=== PATIENT | female | born 1945 | race Caucasian/White ===

== ENCOUNTER → 2016-03-15 | Outpatient (CLI) | payer OTHER, MEDICARE ==
--- NOTE | 2016-03-15 12:59 | MA ---
Screening Digital Mammogram With iCAD Analysis Clinical Indications: Routine screening. The patient has had multiple benign right breast biopsies. Technique: Standard cephalocaudal and mediolateral oblique projections were obtained. A skin marker i s placed on right breast surgical scar. [facility]. Comparison: June 2014, May 2013, October 2011, June 2010, May 2009, May 2008. Breast Density: A; Fatty. Findings: CAD was reviewed. Benign secretory-type calcifications are seen predominantly in the left b reast. No masses, suspicious calcifications, or other signs of malignancy are identified. There has been no significant change in the appearance of either breast. Impression: Benign mammography, BI-RADS 2. Recommendation: Routine mammographic screening in one year as long as physical examination is negativ eFormerly [facility] to the [facility]. Negative mammography should not preclude additional workup of a clinically suspicious finding. The patient's information is entered into a reminder system with a target due date for her next mammo gram.
== END ==
LOC: CIMAGING 09:53
DX: Z12.31 Encounter for screening mammogram for malignant neoplasm of breast (principal)
CPT/HCPCS: G0202

== ENCOUNTER 2016-05-24 12:03 | Emergency (ER) | payer OTHER, MEDICARE ==
[2016-05-24 12:24] VITALS: TEMP 98.1
[2016-05-24] MEDS ORDERED: BENZONATATE 100 MG CAP PO ONE (12:49)
--- NOTE | 2016-05-24 12:56 | UCPHY ---
H & P Time Seen by Provider: 05/24/16 12:40 Patient Type: Established HPI/ROS: HPI Cough, cold symptoms. 70-year-old female by private vehicle with her . She and her have both had cough, nasal congestion, chest congestion, sore throat ongoing for 10 days to 2 weeks now. No fever. She reports feeling fatigued. ROS: Constitutional: As above. Eyes: No discharge. No changes in vision. ENT: As above Respiratory: As above. No shortness of breath. Cardiac: No chest pain, no palpitations. Gastrointestinal: No abdominal pain, no vomiting, no diarrhea. Genitourinary: No hematuria. No dysuria or increased frequency with urination. Musculoskeletal: No back pain. No neck pain. No myalgias or arthralgias. Skin: No rashes. Neurological: No headache. No focal weakness or altered sensation. Past medical history: Extensive past medical history which has been reviewed. Please see triage note for further details. She is on oxygen at 2 L during the night for sleep apnea. Social history: Here with her . She lives with her . Former smoker. Physical Exam: General Appearance: Alert, no distress. This patient is responding to questions appropriately and in full sentences. This patient appears well- hydrated and well-nourished. Eyes: Pupils equal and round no pallor or injection. No lid edema, erythema or injection. ENT, Mouth: Mucous membranes are moist. The pharyngeal tissues are unremarkable. No edema or swelling. No asymmetry suggestive of abscess. No erythema or exudates. Respiratory: There are no retractions, lungs are clear to auscultation with diminished air movement bilaterally. No tachypnea. This is likely her baseline. Cardiovascular: Regular rate and rhythm. No murmur. Neurological: Motor sensory function is grossly intact. Cranial nerves are normal. Neurologic status at baseline. Skin: Warm and dry, no rashes. Musculoskeletal: Neck is supple and nontender. Extremities are symmetrical. All joints range without pain or impingement. Psychiatric: No agitation. No depression. Database: EKG: Imaging: Chest x-ray PA and lateral; the cardiac mediastinal silhouette is unremarkable. No evidence of infiltrate or pneumothorax. No acute cardiopulmonary disease process noted. Interpreted by me. Procedures: Emergency department course: This patient has had ongoing upper respiratory infection/bronchitis symptoms for the last 10 days to 2 weeks. Chest x-ray will be obtained. She will be given 200 mg of Tessalon Perle. Her vital signs have been reviewed. She is afebrile. She is moderately hypertensive. 1:40 p.m., patient re-evaluated. She is resting comfortably. Repeat lung exam is unchanged from prior. No tachypnea. She is having no difficulty breathing. The results of her chest x-ray were discussed with her. I do not feel she requires steroids or scheduled nebulizers at this time. Her presentation is consistent with an upper respiratory infection, viral etiology. Antibiotics are not indicated at this time as well. She does feel comfortable going home with her . I discussed close follow-up with her primary care physician. Return to emergency department precautions reviewed. I will prescribe her Tessalon Perle for the cough. All of their questions were answered. She was discharged in good condition. Differential Diagnosis: The differential diagnosis on this patient includes but is not limited to bronchitis, upper respiratory infection, influenza. Pneumonia, serious bacterial infection unlikely. This represents a partial list of diagnoses considered. These considerations are based on history, physical exam, past history, reassessment and diagnostic testing. Smoking Status: Former smoker Constitutional: Initial Vital Signs Temperature (C) 36.7 C 05/24/16 12:21 Heart Rate 96 05/24/16 12:21 Respiratory Rate 16 05/24/16 12:21 Blood Pressure 175/95 H 05/24/16 12:21 O2 Sat (%) 90 L 05/24/16 12:21 O2 Delivery Mode Room Air Allergies/Adverse Reactions: tetracycline [Tetracycline] Allergy (Severe, Verified 05/24/16 12:21) HIVES, RESP ARREST nickel [Nickel] Allergy (Intermediate, Verified 05/24/16 12:21) Hives adhesive [Adhesive] Allergy (Unknown, Verified 05/24/16 12:21) Unknown Home Medications: Medication Instructions Recorded Citalopram [celeXA 20 MG (RX)] 06/06/12 Divalproex ER [Depakote ER 500 MG 06/06/12 (*)] Donepezil HCl [Aricept 5 MG (*)] 06/06/12 Insulin Glargine [Lantus 100 06/06/12 UNITS/ML (*)] metFORMIN HCL [Glucophage 500 mg 06/06/12 (*)] Fesoterodine Fumarate [TOVIAZ] 11/12/12 Fluticasone Propionate [Flonase 09/09/14 Allergy Relief] LORazepam [Ativan (*)] 09/09/14 Lisinopril [Zestril 2.5 mg (*)] 09/09/14 Tizanidine HCl [Zanaflex] 09/09/14 Verapamil HCl [Verapamil Sr] 09/09/14 Atorvastatin Calcium [Lipitor 40 01/23/15 mg (*)] Levothyroxine [Synthroid 200 mcg 01/23/15 (*)] fentaNYL [Duragesic 12 MCG Patch 01/23/15 (*)] Gabapentin [Neurontin 300 MG (*)] 05/19/15 Frova 12/20/15 Benzonatate [Tessalon Pearles] 100 mg PO TID #12 cap 05/24/16 Medical Decision Making - Data Points Medications Given: Discontinued Medications Benzonatate (Tessalon Pearles) 200 mg PO EDNOW ONE Stop: 05/24/16 12:50 Last Admin: 05/24/16 13:20 Dose: 200 mg Departure - Departure Disposition: Home, Routine, Self-Care Clinical Impression: Upper respiratory infection, Bronchitis Condition: Good Instructions: Acute Bronchitis (ED), Upper Respiratory Infection (ED) Additional Instructions: Read and follow provided instructions. Follow-up with your primary care physician tomorrow for re-evaluation without fail. Take medication as prescribed for cough. Keep well hydrated. Use your oxygen at night as prescribed. Return to the emergency department for worsening cough, fever, wheezing, difficulty breathing or other serious concerns. Referrals: Nayla Dale MD [Primary Care Provider] - As per Instructions Prescriptions: Benzonatate [Tessalon Pearles] 100 mg PO TID #12 cap - PQRS PQRS Measurement: 134: Depression screening and followup, PRIME MD-PHQ2 (12 years and older) Over the last 2 weeks, how often have you been bothered by any of the following problems? 1. Feeling down, depressed, or hopeless? 2. Little interest or pleasure in doing things? Answered no to both questions. 130: Documentation of medications. Reviewed all patient medications, doses, route and frequency. 226: Do you smoke? No. 47: 65 and older: Advanced care planning. Patient designates surrogate decision maker as spouse. 51: 18 years old and older with diagnosis of COPD, spirometry performance. NA 52: 18 years old and older with COPD and symptoms of COPD or FEV1<60% predicted prescribed a B Agonist. NA
[2016-05-24 13:36] VITALS: BP 135/85; PULSE 78; RESP 12; O2SAT 91
== END 2016-05-24 13:55 | disposition home or self-care (01) ==
LOC: CED 12:03
DX: J02.9 Acute pharyngitis, unspecified (principal); J40 Bronchitis, not specified as acute or chronic
CPT/HCPCS: 71020; G0463; 99214-PO

== ENCOUNTER → 2016-06-28 | Outpatient (CLI) | payer OTHER, MEDICARE | LOC: FIMAGING 09:21 | PROVIDERS: ATTEND Internal Medicine | DX: Z13.820 Encounter for screening for osteoporosis (principal); Z82.62 Family history of osteoporosis; E07.9 Disorder of thyroid, unspecified; Z78.0 Asymptomatic menopausal state ==

== ENCOUNTER → 2017-04-06 | Outpatient (CLI) | payer OTHER, MEDICARE ==
[~2017-04-06] MED LIST: IOPAMIDOL (ISOVUE 370) 100 ML BTL IV ONE; LIDOCAINE 1% 300 MG/30 ML SDV ONE
== END ==
LOC: FIMAGING 10:03
PROVIDERS: ATTEND Orthopaedic Surgery
DX: M24.10 Other articular cartilage disorders, unspecified site (principal)
CPT/HCPCS: 73580; 73701; Q9967

== ENCOUNTER → 2017-04-07 | Outpatient (CLI) | payer OTHER, MEDICARE | LOC: CIMAGING 09:02 | PROVIDERS: ATTEND Nurse Practitioner | DX: T85.398A Other mechanical complication of other ocular prosthetic devices, implants and grafts, initial encounter (principal); Z98.2 Presence of cerebrospinal fluid drainage device | CPT/HCPCS: 70450-PO ==

== ENCOUNTER → 2017-04-19 | Outpatient (CLI) | payer OTHER, MEDICARE | LOC: CIMAGING 14:04 | PROVIDERS: ATTEND Nurse Practitioner | DX: G91.2 (Idiopathic) normal pressure hydrocephalus (principal); Z98.2 Presence of cerebrospinal fluid drainage device | CPT/HCPCS: 70250-PO; 70450-PO; 71045-PO; 72040-PO; 74018-PO ==

== ENCOUNTER 2017-05-02 09:11 | Day surgery (SDC) | payer OTHER, MEDICARE ==
--- NOTE | 2017-05-01 22:04 | PDHPUP ---
History & Physical Update H&P update statement: This history and physical update is based on an assessment of the patient which was completed after admission or registration (within 24 hours), but prior to the surgery/procedure. H&P update: H&P reviewed & patient examined, no change in patient's condition since H&P completed
--- NOTE | 2017-05-01 23:11 | GHP ---
[f rep st] HISTORY AND PHYSICAL Amended report CHIEF COMPLAINT: Left leg pain. 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 She has 2 symptomatic surgical screws that are bothering her. She would like those removed. ALLERGIES: Include nickel and tetracycline. MEDICATIONS: Include almotriptan, atorvastatin, Denavir, divalproex, donepezil , sentinel, gabapentin, Lantus insulin, levothyroxine, lisinopril, lorazepam, metformin, methocarbamol, ProAir, Percocet, sumatriptan, tizanidine, and verapamil. PAST MEDICAL HISTORY: Prior medical problems include anemia, asthma, cancer, diabetes, high cholesterol, reflux, migraines, sleep apnea, thyroid issues and metal sensitivity. PAST SURGICAL HISTORY: Prior surgery includes a , tubal ligation, left tibia x2. SOCIAL HISTORY: She is a former smoker, uses no alcohol. PHYSICAL EXAMINATION: EXTREMITIES: The patient has tenderness associated with the metal plate, as well as 2 screws particularly rubbing up against her fibula. X-ray exam reveals some osteolytic changes around the tip of the screws associated with the fibula. She would like surgery in order to resolve the problem. HEENT: The patient's pupils are equal, round, reactive to light. CHEST: Clear to auscultation. HEART: Regular rate and rhythm. ABDOMEN: Soft and nontender. ASSESSMENT AND PLAN: Patient is status post retained left tibial hardware. Plan is to take her to the operating room to undergo hardware removal. /[id number]/MODL Add acc#, 05/02/17, efraín FERRELL
[~2017-05-02 09:11] MED LIST changes: +ACETAMINOPHEN 500 MG TAB PO ONE; +BACITRACIN 50,000 UNITS/10 ML SYR IRR ONE; +BUPIVACAINE 0.5% 10 ML SDV ONE; -IOPAMIDOL (ISOVUE 370) 100 ML BTL IV ONE; -LIDOCAINE 1% 300 MG/30 ML SDV ONE; +POLYMYXIN B SULFATE 500,000 UNIT/10 ML SYR IRR ONE; +PREGABALIN 150 MG CAP PO ONE; +ceFAZolin 2 GM/SWFI 2 GM/20 ML SYR IVP ONE
--- NOTE | 2017-05-02 09:31 | PDANEPAE ---
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 ANE Past Medical History - Cardiovascular History Hx Hypertension: Yes Hx Arrhythmias: No Hx Chest Pain: No Hx Coronary Artery / Peripheral Vascular Disease: No Hx CHF / Valvular Disease: No Hx Palpitations: No Cardiovascular History Comment: HX OF HTN BUT USES VERAPAMIL FOR HTN AND MIGRAINES - Pulmonary History Hx COPD: No Hx Asthma/Reactive Airway Disease: No Hx Recent Upper Respiratory Infection: No Hx Oxygen in Use at Home: Yes O2 in Use at Home (L/minute): 2L night Hx Sleep Apnea: Yes Sleep Apnea Screening Result - Last Documented: Positive Pulmonary History Comment: FARZANEH. asthma - Neurologic History Hx Cerebrovascular Accident: No Hx Seizures: No Hx Dementia: No Neurologic History Comment: MIGRAINES. Shunt -NPH - Endocrine History Hx Diabetes: Yes Hypothyroid: Yes Obesity: moderate Endocrine History Comment: diabetes type 2. hypothyroid - Renal History Hx Renal Disorders: Yes Renal History Comment: urinary incontinence. - Liver History Hx Hepatic Disorders: No - Neurological & Psychiatric Hx Hx Neurological and Psychiatric Disorders: Yes Neurological / Psychiatric History Comment: BI-POLAR - Cancer History Hx Cancer: Yes Cancer History Comment: SKIN CA REMOVED - Congenital Disorder History Hx Congenital Disorders: No - GI History Hx Gastrointestinal Disorders: Yes Gastrointestinal History Comment: gastric ulcer. OCCASSIONAL HEARTBURN. OCCASSIONAL CONSTIPATION - Other Health History Other Health History: "EXTREMLY DRY" SKIN - Chronic Pain History Chronic Pain: Yes (MIGRAINES) - Surgical History Prior Surgeries: Left tibia ORIF 2015. HW REMOVAL 01/2014. LEFT TIB/FIB ORIF . 01/2008 S/P FALL FX SKULL. 09/2007 SHUNT PLACEMENT FOR NPH. EMERGANT C - SECTION. TUBAL LIGATION. BREAST BIOPSIES X2 ANE Review of Systems Review of systems is: negative Review of Systems: - Exercise capacity Exercise capacity: <4 METS METS (RN): 3 METS ANE Patient History - Allergies Allergies/Adverse Reactions: tetracycline [Tetracycline] Allergy (Severe, Verified 05/24/16 12:21) HIVES, RESP ARREST nickel [Nickel] Allergy (Intermediate, Verified 05/24/16 12:21) Hives adhesive [Adhesive] Allergy (Unknown, Verified 05/24/16 12:21) Unknown - Home Medications Home medications: home medication list seen and reviewed Home Medications: RX: Citalopram [celeXA 20 MG (RX)] 06/06/12 [Last Taken 05/01/17] RX: Divalproex ER [Depakote ER 500 MG (*)] 06/06/12 [Last Taken 05/01/17] RX: Donepezil HCl [Aricept 5 MG (*)] 06/06/12 [Last Taken 05/01/17] RX: Insulin Glargine [Lantus 100 UNITS/ML (*)] 46 06/06/12 [Last Taken 05/01/17] RX: metFORMIN HCL [Glucophage 500 mg (*)] 06/06/12 [Last Taken 05/01/17] RX: Fesoterodine Fumarate [TOVIAZ] 11/12/12 [Last Taken 05/01/17] RX: Fluticasone Propionate [Flonase Allergy Relief] 09/09/14 [Last Taken ] RX: Lisinopril [Zestril 2.5 mg (*)] 09/09/14 [Last Taken 05/01/17] RX: Tizanidine HCl [Zanaflex] 09/09/14 [Last Taken 05/02/17 06:30] RX: Verapamil HCl [Verapamil Sr] 09/09/14 [Last Taken 05/01/17] RX: Atorvastatin Calcium [Lipitor 40 mg (*)] 01/23/15 [Last Taken 05/01/17] RX: Levothyroxine [Synthroid 200 mcg (*)] 01/23/15 [Last Taken 05/01/17] RX: fentaNYL [Duragesic 12 MCG Patch (*)] 01/23/15 [Last Taken 05/02/17] RX: Gabapentin [Neurontin 300 MG (*)] 05/19/15 [Last Taken 05/02/17 06:30] Iron 04/26/17 [Last Taken 05/01/17] Lorazepam 04/26/17 [Last Taken 05/01/17] Ondansetron 04/26/17 [Last Taken 04/17/17] Oxycodone-Acetaminophen 5-325 1 PRN 04/26/17 [Last Taken 05/01/17] Sumatriptan PRN 04/26/17 [Last Taken 05/01/17] - NPO status NPO Status: no food or drink >8 hours - Anes Hx Anes Hx: awareness under anesthesia - Smoking Hx Smoking Status: Former smoker Marijuana use: No - Alcohol Use Alcohol Use: None - Family Anes Hx Family Anes Hx: neg - N/A Family Hx Anesthesia Complications: NONE ANE Labs/Vital Signs - Vital Signs Vital Signs: reviewed preoperatively; see RN documention for details Height: 154.94 cm Weight: 88.904 kg ANE Physical Exam - Airway Neck exam: FROM, increased neck circumference, short neck Mallampati Score: Class 4 Mouth exam: normal dental/mouth exam, small mouth opening - Pulmonary Pulmonary: no respiratory distress - Cardiovascular Cardiovascular: regular rate and rhythym - ASA Status ASA Status: III ANE Anesthesia Plan Anesthesia Plan: general endotracheal anesthesia, GA w LMA Total IV Anesthesia: No
[2017-05-02] MEDS ORDERED: LR 1,000 ML IV ONE (09:34)
[2017-05-02] MEDS ORDERED: PREGABALIN 150 MG CAP ONE (09:39)
[2017-05-02] MEDS ORDERED: ceFAZolin 2 GM/SWFI 20 ML SYR IVP ONE (09:40)
[2017-05-02] MEDS ORDERED: ACETAMINOPHEN 500 MG TAB ONE (09:40)
[2017-05-02 09:58] VITALS: PULSE 76
[2017-05-02] MEDS ORDERED: fentaNYL 100 MCG/2 ML INJ ONE ×2 (11:10→12:26)
[2017-05-02] MEDS ORDERED: PROPOFOL 200 MG/20 ML VIAL ONE (11:10)
[2017-05-02] MEDS ORDERED: ROCURONIUM 50 MG/5 ML VIAL ONE (11:10)
[2017-05-02] MEDS ORDERED: LIDOCAINE 2% 5 ML SDV ONE (11:10)
[2017-05-02] MEDS ORDERED: SUGAMMADEX SODIUM 200 MG/2 ML VIAL IVP ONE (11:42)
[2017-05-02] MEDS ORDERED: ONDANSETRON 4 MG/2 ML VIAL ONE (11:42)
[2017-05-02] MEDS ORDERED: DEXAMETHASONE 4 MG/ML VIAL ONE (11:42)
[2017-05-02] MEDS ORDERED: PHENYLEPHRINE HCL 100 MCG/ML SYR IVP PRN (11:46)
[2017-05-02] MEDS ORDERED: PROMETHAZINE HCL 25 MG/ML INJ IVP PRN ×2 (11:46→12:07)
[2017-05-02] MEDS ORDERED: HYDROmorphONE/DILAUDID 1 MG/ML INJ IVP PRN (11:46)
[2017-05-02] MEDS ORDERED: HYDROCODONE/APAP 5/325 TAB PO PRN (11:46)
[2017-05-02] MEDS ORDERED: LR 500 ML IV PRN (11:46)
[2017-05-02] MEDS ORDERED: LABETALOL HCL 5 MG/ML 20 ML MDV IVP PRN (11:46)
[2017-05-02] MEDS ORDERED: NALOXONE HCL 0.4 MG/ML INJ IVP PRN (11:46)
[2017-05-02] MEDS ORDERED: ONDANSETRON 4 MG/2 ML VIAL IVP PRN ×2 (11:46→12:07)
[2017-05-02] MEDS ORDERED: HYDROGEN PEROXIDE 236 ML BOTTLE TP ONE (11:48)
[2017-05-02] MEDS ORDERED: HYDROmorphONE/DILAUDID 2 MG/ML INJ IVP PRN (12:00)
[2017-05-02] MEDS ORDERED: diphenhydrAMINE 25 MG CAP PO PRN (12:07)
[2017-05-02] MEDS ORDERED: KETOROLAC 30 MG/1 ML SDV IVP PRN (12:07)
[2017-05-02] MEDS ORDERED: CYCLOBENZAPRINE 10 MG TAB PO PRN (12:07)
[2017-05-02] MEDS ORDERED: ONDANSETRON DISINTEGRATING 4 MG TAB PO PRN (12:07)
[2017-05-02] MEDS ORDERED: METOCLOPRAMIDE 10 MG/2 ML VIAL IVP PRN (12:07)
[2017-05-02] MEDS ORDERED: oxyCODONE IR 5 MG TAB PO PRN (12:07)
[2017-05-02] MEDS ORDERED: PROMETHAZINE HCL 25 MG SUPPR PR PRN (12:07)
[2017-05-02] MEDS ORDERED: traMADol 50 MG TAB PO PRN (12:07)
[2017-05-02] MEDS ORDERED: DIPHENOXYLATE/ATROPINE LOMOTIL 1 TAB PO PRN (12:07)
--- NOTE | 2017-05-02 12:07 | POSTOPPROG ---
Post Op Note Date of Operation: 05/02/17 Surgeon: Debbie Dhillon [employer] Welding Machine Operator: coltrain Anesthesia: LMA Pre-op Diagnosis: painful HW Procedure: l tibia keny with fluoro Inf/Abcess present in the surg proc area at time of surgery?: No Depth: Deep Incisional (Fascial) EBL: 50-100
[2017-05-02] MEDS: fentaNYL 100 MCG/2 ML INJ IVP PRN ×3 (12:28→12:54)
[2017-05-02] MEDS ORDERED: LR 1,000 ML IV SCH (12:30)
[2017-05-02 12:33] VITALS: TEMP 97.5
[2017-05-02] MEDS ORDERED: HYDROCODONE/APAP 5/325 TAB ONE (13:23)
[2017-05-02 13:43] VITALS: RESP 16
--- NOTE | 2017-05-02 14:44 | GOP ---
[f rep st] OPERATIVE REPORT DATE OF OPERATION: 05/02/2017 SURGEON: Debbie Dhillon MD ENVIRONMENTAL PROGRAMS SPECIALIST: Aba Mensah [facility], whose presence was medically necessary. ANESTHESIA: By LMA. PREOPERATIVE DIAGNOSIS: Left tibia painful hardware. POSTOPERATIVE DIAGNOSIS: Left tibia painful hardware. PROCEDURE PERFORMED: Left tibia removal of hardware, with the use of fluoroscopy. 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 She would therefore like a portion of the h ardware removed in order to relieve pressure on the fibula. DESCRIPTION OF PROCEDURE: Patient brought to the operating room after the left side had been identif ied as correct side by the patient, nurse and physician. Once in the operating room, she was placed under general anesthesia using an LMA. Once asleep, a tourniquet placed around the upper portion of the left thigh, and the left lower extremity was sterilely prepped and draped in the usual fashion wi th a GSI solution. Once prepped and draped, fluoroscopy was used to find the heads of the screws in question; these were marked at the area of her old scar, at which point, 1 cm incisions were made ove r each of these areas and with sharp and blunt dissection, carried down through the skin and subcutan eous layers, identifying the plate below; at which point, a screwdriver was used to remove each of th e 3 screws in question. Once they were out, the holes were curetted with a small House curette, they were thoroughly irrigated with antibiotic solution and were closed in layers using 2-0 Vicryl suture in an inverted stitch for the subcutaneous layers, and a 3-0 Monocryl suture in a running subcuticul ar stitch for the skin. 15 cc of Marcaine was infused around the combination of the 3 wounds. The w ounds were then dressed with Steri-Strips, Xeroform, 4 x 4's, wrapped in cast padding. The tournique t was deflated at 15 minutes. Leg was completely undraped in the operating room, tourniquet removed from the thigh, and an Noman wrap placed around the leg and ankle. She was then woken up, extubated, transferred onto a stretcher, and sent to recovery room in good con dition. TOURNIQUET TIME: 15 minutes. /[id number]/MODL
--- NOTE | 2017-05-02 15:06 | POSTANESTH ---
Post Anesthetic Evaluation Cardiovascular Status: Normal, Stable, Similar to Pre-Op Cond Respiratory Status: Normal, Stable, Similar to Pre-op Cond. Level of Consciousness/Mental Status: Can Participate in Eval, Alert and Oriented Pain Control: Adequate, Prn Tx Ordered Nausea/Vomiting Control: Adequate, Prn Tx Ordered Complications Possibly Related to Anesthesia: None Noted
[2017-05-02 16:42] VITALS: BP 123/98; O2SAT 90
[2017-05-02] MEDS ORDERED: ACETAMINOPHEN 325 MG TAB PO SCH (18:00)
[2017-05-02] MEDS ORDERED: FAMOTIDINE 20 MG TAB PO SCH (21:00)
== END 2017-05-02 14:45 | disposition home or self-care (01) ==
LOC: FSGY 09:11
PROVIDERS: ATTEND Orthopaedic Surgery
PROC: 0QPH04Z Removal of Internal Fixation Device from Left Tibia, Open Approach (ICD-10-PCS; principal; 2017-05-02 10:45)
DX: T84.84XA Pain due to internal orthopedic prosthetic devices, implants and grafts, initial encounter (principal); J45.909 Unspecified asthma, uncomplicated; E11.9 Type 2 diabetes mellitus without complications; E78.00 Pure hypercholesterolemia, unspecified; K21.9 Gastro-esophageal reflux disease without esophagitis; G47.33 Obstructive sleep apnea (adult) (pediatric); G43.909 Migraine, unspecified, not intractable, without status migrainosus; Z87.891 Personal history of nicotine dependence; Z85.828 Personal history of other malignant neoplasm of skin
CPT/HCPCS: J0690; J1100; J2405; J2704; J3010

== ENCOUNTER → 2017-08-07 | Outpatient (CLI) | payer OTHER, MEDICARE | LOC: CIMAGING 10:23 | PROVIDERS: ATTEND Internal Medicine | DX: Z12.31 Encounter for screening mammogram for malignant neoplasm of breast (principal) ==

== ENCOUNTER → 2018-04-24 | Outpatient (CLI) | payer OTHER, MEDICARE | LOC: FIMAGING 07:27 | PROVIDERS: ATTEND Physician Assistant | DX: M25.512 Pain in left shoulder (principal); M48.02 Spinal stenosis, cervical region ==

== ENCOUNTER 2018-06-10 16:40 | Inpatient (IN) | payer OTHER, MEDICARE ==
[2018-06-10] MEDS ORDERED: KETOROLAC 15 MG/1 ML SDV IVP ONE (17:57)
--- NOTE | 2018-06-10 17:57 | EDPHY ---
H & P Stated Complaint: PRITCHETT-x1wk - mon eye misalinement- went to optho [facility]ah - has neuro apt next Time Seen by Provider: 06/10/18 16:54 HPI/ROS: CHIEF COMPLAINT: Deviation of iris of left eye HISTORY OF PRESENT ILLNESS: This is a 72-year-old female with complex medical history that includes migraines, normal pressure hydrocephalus status post BOTTOM FINISHER shunting in the remote past, hypothyroidism, and diabetes type 2. She comes in this evening concerned because the iris of her left eye is "deviated". She had a similar problem early last week, 5-6 days ago, while watching TV. She noticed that she was seeing multiple images, as if each eye was seeing separately. When she looked in the mirror it was her impression that her left iris was deviated out to the side. This seemed to partially resolve. Two days later she saw Dr. Jimenez Aguilar, ophthalmology, and had a reportedly normal eye examination. It is not clear whether or not she had abnormal EOM at that visit. She was referred to her neurologist Dr. Shaikh, and has an appointment with him in 5 days. However, this morning she awoke with abnormal vision and again noted that her left eye was not moving properly. This has improved slightly during the day but persists. She describes "tunnel vision" and says that maldonado that are perpendicular appear to be angled. She feels dizzy and notes that the room is spinning when she moves her head. When walking she is bumping into the maldonado. She vomited once this morning. In addition, she has a severe headache, not typical of her usual migraines. In retrospect she thinks that she has had a headache for the last couple of weeks. She describes it as feeling as if a "cap is squeezing her head". Her migraines are typically one-sided. She tried her sumatriptan without relief. She has been receiving injections of Abjoy (? a new migraine medication) for four months with excellent migraine control. REVIEW OF SYSTEMS: A ten system review of systems was performed and is negative with the exception of the items mentioned in the HPI. She also mentions that she has been having left shoulder pain and some occasional weakness involving her left upper extremity. She underwent a cervical MRI and was told that she had cervical stenosis and that this was likely the explanation for her pain and intermittent weakness. Past medical history: 1. Migraine headaches 2. Diabetes mellitus type 2 3. Hypothyroidism 4. Normal pressure hydrocephalus 5. Cervical stenosis 6. Bipolar disorder Past surgical history: 1. BOTTOM FINISHER shunt 2. Multiple orthopedic surgeries on the left leg 3. section Family history: Strong family history of diabetes. Her mother of complications related to diabetes. One of her 5 brothers had a throat cancer. Social history: She lives with her . She does not use tobacco or alcohol products. General Appearance: Alert. Vital signs reviewed. Initial blood pressure 176/ 110 with a repeat blood pressure 175/97. Subsequent blood pressure 157/85. Eyes: No conjunctival injection. No discharge. Anicteric. ENT, Mouth: Mucous membranes are moist, no oropharyngeal erythema or edema. Bilateral hearing aids present. Neck: No lymphadenopathy, supple. No carotid bruits. Respiratory: Lungs are clear to auscultation; no wheezes, rales, or rhonchi. Cardiovascular: Regular rate and rhythm; no murmur, rub, or gallop. Gastrointestinal: Abdomen is obese, soft and nontender, no masses or organomegaly, bowel sounds normal. Skin: Warm and dry, no rashes on exposed skin, normal color. Back: Nontender to palpation over the thoracolumbar spine. No CVAT. Extremities: No lower extremity edema, no calf tenderness or swelling. Neurological: Alert and oriented x4. Moving all four extremities easily and equally. Cranial nerves II through XII are examined and are intact with the exception of an inability to adduct her left eye nasally and a subtle pupillary discrepancy with the left pupil slightly smaller than the right. No ptosis noted. No nystagmus. Strength is 5 minus over 5 bilaterally with testing of all major motor groups. Sensation is intact to light touch over all 4 extremities. Gait is steady, using her cane. [id number] is performed slowly with in accuracy--touching her mouth instead of her nose with either hand. Speech is clear and fluent. Psychiatric: Normal affect. - Personal History Tetanus Vaccine Date: within 10 years - Medical/Surgical History Hx Asthma: Yes Hx Chronic Respiratory Disease: Yes Hx Diabetes: Yes Hx Cardiac Disease: No Hx Renal Disease: No Hx Cirrhosis: No Hx Alcoholism: No Hx HIV/AIDS: No Hx Splenectomy or Spleen Trauma: No Other PMH: Chronic migraines, bipolar, anxiety, chronic hyponatremia, diabetes, normal pressure hydrocephalus, reactive airway disease, chronic pain syndrome with narcotic dependency, hypothyroidism,. hypertension, cognitive dysfunction ; BOTTOM FINISHER shunt, tubal ligation, , orthopedic - Social History Smoking Status: Former smoker Constitutional: Initial Vital Signs Temperature (C) 36.6 C 06/10/18 16:51 Heart Rate 96 06/10/18 16:51 Respiratory Rate 18 06/10/18 16:51 Blood Pressure 176/110 H 06/10/18 16:51 O2 Sat (%) 96 06/10/18 16:51 O2 Delivery Mode Room Air Allergies/Adverse Reactions: tetracycline [Tetracycline] Allergy (Severe, Verified 06/10/18 17:32) HIVES, RESP ARREST nickel [Nickel] Allergy (Intermediate, Verified 06/10/18 17:32) Hives adhesive [Adhesive] Allergy (Unknown, Verified 06/10/18 17:32) Unknown Home Medications: Medication Instructions Recorded Citalopram [celeXA 20 MG (RX)] 06/06/12 Divalproex ER [Depakote ER 500 MG 06/06/12 (*)] Donepezil HCl [Aricept 5 MG (*)] 06/06/12 Insulin Glargine [Lantus 100 46 06/06/12 UNITS/ML] metFORMIN HCL [Glucophage 500 mg 06/06/12 (*)] Fluticasone Propionate [Flonase 09/09/14 Allergy Relief] Tizanidine HCl [Zanaflex] 09/09/14 Verapamil HCl [Verapamil Sr] 09/09/14 Levothyroxine [Synthroid 200 mcg 01/23/15 (*)] Gabapentin [Neurontin 300 MG (*)] 05/19/15 Iron 04/26/17 Lorazepam 04/26/17 Ondansetron 04/26/17 Oxycodone-Acetaminophen 5-325 1 PRN 04/26/17 Sumatriptan PRN 04/26/17 Ambien 06/10/18 Migraine Injections Monthly 06/10/18 Myrbetriq 06/10/18 Medical Decision Making - Diagnostics EKG Interpretation: 12 lead EKG is interpreted in [place] by emergency department physician. Sinus rhythm with rate 79. No acute ischemic changes. Imaging Results: Imaging Impressions Head CT 06/10/18 17:31 Impression: 1. Right transoccipital ventriculostomy catheter, with interval decrease in size of the lateral ventricular system. 2. Interval slight increase in bilateral parietal convexity slightly complex subdural hygromas. Results called to Dr. Nicole Newton at 6:00 PM at the time of the interpretation. ED Course/Re-evaluation: 72-year-old female with global headache, unlike her typical migraines, and extra ocular movement abnormality (inability to adduct OS). This has been present for the last 5 days apparently. She has seen an student dean and was referred to her neurologist. However, her symptoms have worsened. Head CT tonight shows a right BOTTOM FINISHER shunt. I discussed it with Dr. Kris Aguilar. Ventricles appear slightly smaller than they did on 04/19/2017. She has bilateral subdural hygromas that her slightly increased from the study done in 2018. He also notes an increase in density of the hygroma fluid the bilateral hygromas are symmetric. No evidence of acute bleeding. I reviewed the films myself. In addition to reviewing her CT scan, I also reviewed her CBC and chemistry results, EKG, and previous records. She received Toradol 50 mg IV in the emergency department for headache. She had significant relief of her headache pain. She was initially noted to be hypertensive with a blood pressure of 176/110. Subsequent blood pressure, approximately 2 hr later, was 157/85. She continues with inability to abduct her left eye. She will need an MRI scan of her head to assess for stroke. 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 This seems to be a fairly isolated deficit raising the question of internuclear ophthalmoplegia; MS seems unlikely at her age, a small stroke in this woman with diabetes seems more likely. MRI is not available at [facility]. She is being admitted to the hospitalist service at [facility]. If she has had a stroke, it is too late for any interventions such as tPA. I have spoken with Dr. Bertrand, on-call for Neurosurgery. His team will see the patient in consultation tomorrow. I have spoken with Dr. Alex Yung, on-call for Neurology. Neurology will see the patient tomorrow. Differential Diagnosis: I considered a differential diagnosis that includes but is not limited TIA, stroke, shunt malfunction, demyelinating disease, subarachnoid hemorrhage, intracranial mass. - Data Points Laboratory Results: 06/10/18 17:27 POC Sodium 140 mEq/L mEq/L (135-145) POC Potassium 4.8 mEq/L mEq/L (3.3-5.0) POC Chloride 101.0 mEq/L mEq/L (97-110) POC Total CO2 27 mEq/L mEq/L (22-31) POC BUN 23 mg/dL mg/dL (7-23) POC Creatinine 0.8 mg/dL mg/dL (0.6-1.0) POC Glucose 121 mg/dL H mg/dL (70-100) POC Calcium 9.8 mg/dL mg/dL (8.5-10.4) Medications Given: Discontinued Medications Ketorolac Tromethamine (Toradol) 15 mg IVP EDNOW ONE Stop: 06/10/18 17:58 Last Admin: 06/10/18 18:00 Dose: 15 mg Point of Care Test Results: CBC CBC Collection Date 06/10/18 CBC Collection Time 17:35 WBC 8.03 RBC 5.75 HGB 18.6 HCT 55.0 PLT 184 Neut # 4.79 Neut 59.6 LYMPH # 2.43 LYMPH 30.3 MCV 95.7 Chemistry 06/10/18 17:27 POC Sodium 140 mEq/L mEq/L (135-145) POC Potassium 4.8 mEq/L mEq/L (3.3-5.0) POC Chloride 101.0 mEq/L mEq/L (97-110) POC Total CO2 27 mEq/L mEq/L (22-31) POC BUN 23 mg/dL mg/dL (7-23) POC Creatinine 0.8 mg/dL mg/dL (0.6-1.0) POC Glucose 121 mg/dL H mg/dL (70-100) POC Calcium 9.8 mg/dL mg/dL (8.5-10.4) Departure - Departure Disposition: [facility] Inpatient Acute Clinical Impression: Extraocular muscle palsy of left eye, Change in vision Headache Qualifiers: Headache type: new daily persistent Qualified Code(s): G44.52 - New daily persistent headache (NDPH) Condition: Fair
[2018-06-10] MEDS ORDERED: ACETAMINOPHEN 325 MG TAB PO PRN (18:32)
[2018-06-10] MEDS ORDERED: ONDANSETRON 4 MG/2 ML VIAL IVP PRN (18:32)
--- NOTE | 2018-06-10 19:12 | PDGENHP ---
History and Physical - Chief Complaint Vision Changes - History of Present Illness Debra Fernández is a 72 yo F with a PMHx of migraines, NPH s/p WOODWIND REEDS CUTTER shunting in the remote past, hypothyroidism, and T2DM who presents to [facility] for vision changes. She reports that this started approx. 6 days ago when she noticed she was seeing multiple images in her visual constantino while watching a hockey game on TV. When she looked in the mirror, she noticed that her L eye was deviated to the outside and would not move to its normal position. She notes a global headache as well as dizziness which are associated with this vision change. Her headache is global and different in quality than her typical migraines. Her migraines are typically unilateral while this is global and squeezing in quality. She attempted to take her sumatriptan without any improvement. She reports that these symptoms seemed to improve and she followed up with an opthamologist, Dr. Jimenez Aguilar, 2 days after onset, who's exam was reportedly normal. She was then referred to her neurologist Dr. Shaikh with whom she has an appointment this upcoming Monday. She reports that this morning when she awoke her vision was abnormal and her L eye wasn't moving properly. She states this has improved slightly over the course of the day but not resolved. She denies any chest pain, SOB, nausea, d/c, f/c, abdominal pain, weakness, numbness/tingling. History Information - Allergies/Home Medication List Allergies/Adverse Reactions: tetracycline [Tetracycline] Allergy (Severe, Verified 06/10/18 17:32) HIVES, RESP ARREST nickel [Nickel] Allergy (Intermediate, Verified 06/10/18 17:32) Hives adhesive [Adhesive] Allergy (Unknown, Verified 06/10/18 17:32) Unknown Home Medications: Citalopram [celeXA 20 MG (RX)] 06/06/12 [Last Taken 05/01/17] Divalproex ER [Depakote ER 500 MG (*)] 06/06/12 [Last Taken 05/01/17] Donepezil HCl [Aricept 5 MG (*)] 06/06/12 [Last Taken 05/01/17] Insulin Glargine [Lantus 100 UNITS/ML] 46 06/06/12 [Last Taken 05/01/17] metFORMIN HCL [Glucophage 500 mg (*)] 06/06/12 [Last Taken 05/01/17] Fluticasone Propionate [Flonase Allergy Relief] 09/09/14 [Last Taken 04/17/17] Tizanidine HCl [Zanaflex] 09/09/14 [Last Taken 05/02/17 06:30] Verapamil HCl [Verapamil Sr] 09/09/14 [Last Taken 05/01/17] Levothyroxine [Synthroid 200 mcg (*)] 01/23/15 [Last Taken 05/01/17] Gabapentin [Neurontin 300 MG (*)] 05/19/15 [Last Taken 05/02/17 06:30] Iron 04/26/17 [Last Taken 05/01/17] Lorazepam 04/26/17 [Last Taken 05/01/17] Ondansetron 04/26/17 [Last Taken 04/17/17] Oxycodone-Acetaminophen 5-325 1 PRN 04/26/17 [Last Taken 05/01/17] Sumatriptan PRN 04/26/17 [Last Taken 05/01/17] Ambien 06/10/18 [Last Taken Unknown] Migraine Injections Monthly 06/10/18 [Last Taken Unknown] Myrbetriq 06/10/18 [Last Taken Unknown] I have personally reviewed and updated: family history, medical history, social history, surgical history - Past Medical History diabetes type 2, hypertension, migraines Additional medical history: NPH sp WOODWIND REEDS CUTTER shunt - Surgical History Reports: neurological surgery - Family History Positive for: non-pertinent - Social History Smoking Status: Former smoker Review of Systems Review of Systems: ROS: 10pt was reviewed & negative except for what was stated in HPI & below Physical Exam Physical Exam: Temp Pulse Resp BP Pulse Ox 36.6 C 78 18 157/85 H 97 06/10/18 19:00 06/10/18 19:00 06/10/18 19:00 06/10/18 19:00 06/10/18 19:00 Constitutional: no apparent distress Eyes: PERRL, EOMI Ears, Nose, Mouth, Throat: moist mucous membranes Cardiovascular: regular rate and rhythym Respiratory: no respiratory distress Gastrointestinal: soft, non-tender abdomen Skin: warm Musculoskeletal: full muscle strength Neurologic: AAOx3, sensation intact bilaterally, CN II-XII Intact Psychiatric: interacting appropriately Lab Data & Imaging Review POC Sodium 140 mEq/L (135-145) 06/10/18 17:27 POC Potassium 4.8 mEq/L (3.3-5.0) 06/10/18 17:27 POC Chloride 101.0 mEq/L (97-110) 06/10/18 17:27 POC Total CO2 27 mEq/L (22-31) 06/10/18 17:27 POC BUN 23 mg/dL (7-23) 06/10/18 17:27 POC Creatinine 0.8 mg/dL (0.6-1.0) 06/10/18 17: POC Glucose 121 mg/dL (70-100) H 06/10/18 17: POC Calcium 9.8 mg/dL (8.5-10.4) 06/10/18 17:27 Assessment & Plan Assessment: Vision Changes - L eye deviated laterally with associated vision changes - CT Head in ED without acute abnormalities, noting interval slight increase in b/l parietal convexity slightly complex subdural hygromas - Neurosurgery consulted by ED, recommend MRI and will see patient in the AM - Patient is out of tPA window if this is related to CVA - Neurology consult placed, patient follows with Dr. Shaikh as outpatient NPH s/p WOODWIND REEDS CUTTER Shunt - CT Head on admission showing R transoccipatl ventroculostomy catheter with interval decrease in size of lateral ventricular system - Neurosurgery consult as above Migraine headaches - Unclear is vision changes related to migraine - Pt attempted sumatriptan without improvement - Patient has been receiving new injectable medications for migraines - Neurology consult as above - PRN pain medication Diabetes mellitus type 2 - Will hold home Metformin - SSI ordered as IP - Restart home insulin at decreased dose pending med rec Hypothyroidism - Continue home levothyroxine FEN: Regular DVT PPx: Lovenox Code: FULL Dispo: Admit to Observation
[2018-06-10] MEDS ORDERED: D50W 25 GM/50 ML SYR IVP PRN (19:29)
--- NOTE | 2018-06-10 19:44 | CPEKG ---
Test Reason : OPEN Blood Pressure : / mmHG Vent. Rate : 079 BPM Atrial Rate : 079 BPM P-R Int : 147 ms QRS Dur : 090 ms QT Int : 381 ms P-R-T Axes : 068 028 082 degrees QTc Int : 437 ms Sinus rhythm Confirmed by Fadi Berry ([id number]) on 06/10/2018 7:43:55 PM Referred By: FADI BERRY Confirmed By:Fadi Berry
[2018-06-10] MEDS: KETOROLAC 15 MG/1 ML SDV IVP SCH (23:48)
[2018-06-11] MEDS ORDERED: GABAPENTIN 300 MG CAP PO ONE (00:08)
[2018-06-11] MEDS ORDERED: LORazepam 0.5 MG TAB PO ONE (04:05)
[2018-06-11 05:10] LABS: PLATELET COUNT 265 10^3/uL (150-400)
[2018-06-11 05:16] LABS: INR 0.94 (0.83-1.16); PROTIME(PATIENT) 12.2 SEC (12.0-15.0)
[2018-06-11] MEDS: KETOROLAC 15 MG/1 ML SDV IVP SCH ×3 (05:54→17:49)
--- NOTE | 2018-06-11 08:47 | GCON ---
[f rep st] CONSULTATION CHIEF COMPLAINT: Vision changes over the course of the last week. HISTORY OF PRESENT ILLNESS: The patient is a 72-year-old female who was admitted to the Internal [facility] with vision changes. She has a past medical history of migraines, normal-pressure hydr ocephalus that she has had a PILOT PLANT TECHNICIAN shunt placed approximately 10 years ago. She also has history of hyp othyroidism, type 2 diabetes. She did present with a 7-day history of vision changes. She reported approximately 6 days ago that she noted seeing multiple images in her visual constantino while watching a hockey game on TV. She looked in the mirror and noted that her left eye was deviated to the outside and was not in its normal position. She called and followed up with her executive wellness programs director, Dr. Aguilar , who felt that her eye exam was okay but felt it was more of an issue with her brain given the devia tion that she has. He made an immediate phone call to Neurology and referred her to Dr. Shaikh. She has an appointment this next Monday with Dr. Shaikh. She complained of some headaches that wa s global and different in quality and than her typical migraines. She attempted to take some of her sumatriptan without any improvement. She reported that some of these symptoms seemed improved after she followed up with her executive wellness programs director 2 days after the onset. She reported worsening symptoms and abnormal vision. This prompted her to go to the emergency department. She was seen in the emergenc y department yesterday and was admitted to the Internal Medicine Service and we were consulted given her history of NPH and this new deviation. She has a pending MRI of the brain with and without contr ast. She has a [employer] PILOT PLANT TECHNICIAN shunt that was set per office notes at 1.0 and this was confirmed with the patient. We will review the images with Dr. Lyon and likely change this and increase the setting to 1.5. Currently, the patient denies any neck pain. No chest pain or shortness of breath. No nausea or vomiting. No abdominal complaints. No fevers or chills. No weakness, numbness, or t ingling. PAST MEDICAL HISTORY: 1. Type 2 diabetes. 2. Hypertension. 3. Migraines. 4. NPH. PAST SURGICAL HISTORY: PILOT PLANT TECHNICIAN shunt placement. ALLERGIES: Tetracyclines, lora and adhesives. HOME MEDICATIONS: Include the following: , Depakote, Aricept, Lantus, Glucophage, Flonase , Zanaflex, verapamil, Synthroid, Neurontin, iron, lorazepam, Zofran, oxycodone, sumatriptan, Ambien, migraine injection medications monthly and Myrbetriq. FAMILY HISTORY: Reviewed and not pertinent. SOCIAL HISTORY: The patient is a former smoker. REVIEW OF SYSTEMS: Complete 10-point review of systems was negative except what is noted in the HPI. PHYSICAL EXAM: GENERAL: This is an awake, alert, oriented female in no acute distress. VITAL SIGNS : Most recent, blood pressure 165/94 with a MAP of 117, 76 heart rate, 16 respirations, 95% on room air, temperature 36.8. HEENT: Head is normocephalic, atraumatic. Pupils are equal, round, reactive to light. EOMI is intact except for medial deviation of the left eye. Full visual constantino by confro ntation. Ears are patent. Nose is patent. NECK: Soft and supple with midline tenderness. Full ra nge of motion in flexion, extension, lateral bending, rotation. RESPIRATORY: Deferred. CARDIAC: D eferred. ABDOMEN: Soft, nontender. No peritoneal signs. : Deferred. RECTAL: Deferred. NEURO : The patient is awake, alert and oriented to name, place, location, date, time, and situation. Mem ory is intact to immediate, past, and current events. Speech: No aphasia, dysarthria, dysphonia. C ranial nerves 2-12 grossly intact except for noted deviation of the left eye. Motor: Patient has 5/ 5 strength in all muscle groups of bilateral upper and lower extremities to include deltoids, biceps, triceps, brachioradialis, wrist flexion extensors, sas sql developer intrinsic fingers, iliopsoas, quadriceps, lanier mstring, plantar flexion, dorsiflexion, EHL testing. Sensation is grossly intact to light touch thro ughout all dermatome distributions upper and lower extremities. Negative straight leg raise. Negati ve FLORENTINO test. Reflexes of the biceps, triceps, brachioradialis, knee jerk and ankle jerk 2+/4. Toe s are downgoing bilaterally. Irby's negative. Babinski negative. No evidence of clonus. MEDICAL DECISION MAKING/DIAGNOSTIC STUDIES: Laboratory tests obtained 06/11/2018, shows a white coun t of 8.98 with an H and H of 12.2 and 36.4, with a platelet count of 265. Coags on 06/11/2018, shows a PT of 12.2, INR of 0.94. Chemistry on 06/11/2018, sodium 133, potassium 5.1, chloride 99, CO2 26, BUN 31, creatinine 0.9, and a glucose of 77. Imaging CT scan of the head obtained 06/10/2018, shows a right trans occipital PILOT PLANT TECHNICIAN catheter noted with interval decrease in size of lateral ventricle system. There is interval size increase in bilateral subdural hygromas. Pending MRI of the brain with and without contrast. IMPRESSION: 1. Vision changes with deviation laterally of the left eye. 2. History of hypothyroidism, type 2 diabetes, migraines, normal-pressure hydrocephalus with ventric uloperitoneal shunt placement with a current setting prior most recent office note of 1.0 confirmed w ith patient. PLAN AND DISCUSSION: The patient is a 72-year-old female, well known to [facility] and [facility], who is a prior patient of Dr. Lyon's, who will be seen and evaluated as well by him this a.m. The patient was admitted with a medial rectus palsy of the left eye. She has outward dev iation of the left eye. The symptoms started approximately a week ago. She was seen by our ophthalm ologist, Dr. Lancaster, felt the ocular exam was okay. He did refer her to Dr. Shaikh for this no andreia eye deviation issue. On her CT scan, there was some noted hygromas. I did review the images wit h Dr. Lyon and he felt that we needed to increase her shunt from 1.0 to 1.5. She has a pending sta t MRI of the brain. Once this is obtained, will instruct the nurse to give me a call and I can come back with the reprogrammer and set her at 1.5. Neurology will consult the patient as well today. Truman shen questions and concerns were answered. The patient understands and agrees. /[id number]
[2018-06-11] MEDS ORDERED: ASPIRIN EC 81 MG TAB PO SCH (09:00)
--- NOTE | 2018-06-11 10:12 | GCON ---
[f rep st] CONSULTATION NEUROLOGY CONSULTATION REFERRING PHYSICIAN: Carolyn Villa MD HISTORY: The patient is a 72-year-old woman who I am asked to see in neurologic consultation regardi ng diplopia. She says that a week ago, she first noticed double vision while she was watching televi alia and objects were split in multiple directions. She looked in the mirror and saw that her left e ye was fixed in the lateral position. She was not sure what was happening, and on Monday of last week, Dr. Jimenez Aguilar for ophthalmology exam and he advised her to have a followup with me. He did not find anything obvious to explain it within her immediate ocular system, but told her he felt it was likely related to the nerve. I have not seen his actual note. 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 T he symptoms have been fluctuating over the last week and there are times when it is more fixed in the lateral position she says and sometimes associated with nausea or vomiting. She says she is not reina e if that is because it makes her so uncomfortable to look at it or if she actually has another sourc e for nausea. She denies facial numbness. She is having a headache over the last several months jaime t is fluctuating and not really position dependent. She has a history of hydrocephalus with shunt an d at higher pressures, she was having ataxia and incontinence issues, so her current shunt setting is at 1, which was working fairly well for many years now, but questions have been raised about whether there could be a pressure component creating this syndrome as well. Otherwise, history of type 2 diabetes, gastric ulcer, the hydrocephalus with shunt, prior concussion. PHYSICAL EXAMINATION: VITAL SIGNS: Blood pressure is 173/85, pulse 74, respiration 17, temperature 36.7. GENERAL: Well developed in no acute distress. NEUROLOGIC: EYES: Clear. She has mild left ptosis. Pupils are 3 mm and reactive with no afferent pupillary defect. She has abduction of the le ft eye in primary gaze and cannot cross toward the central position with the left eye suggesting 3rd nerve involvement, but sparing the pupil. All other extraocular movements seem to be preserved. The rest of her exam is normal. IMAGING: Head CT showed slightly enlarged bilateral subdural hygromas. No hemorrhage or obvious str arnie. IMPRESSION: Total unit time of 50 minutes. The patient has either a left ischemic 3rd nerve palsy o r a falsely localized 3rd nerve problem related to pressure changes, perhaps low intracranial pressur e. We will see if MRI shows anything more specific. A brainstem lesion is less likely, but we will look for any changes with more detailed imaging. I spoke to Dr. Lyon with the patient this morning . Will probably slow the rate of drainage to see if that helps. This might take 6 to 8 weeks to emily w improvement if it is related to relatively low intracranial pressure. She does not give the classi c symptoms, however, of low intracranial pressure in terms of the postural headache. Ischemic 3rd ne rve palsy is certainly possible as well and that likewise may improve spontaneously over 6 to 8 weeks , but does not always recover. Her principal risk factor is diabetes. If everything is stable today , she could potentially be discharged and follow up as an outpatient. /[id number]/MODL
[2018-06-11] MEDS: INSULIN LISPRO 100 UNIT/ML SC SCH ×3 (10:15→18:46)
[2018-06-11] MEDS ORDERED: FREMANEZUMAB VFRM 225 MG SQ SCH (10:30)
[2018-06-11] MEDS ORDERED: ONDANSETRON DISINTEGRATING 4 MG TAB PO PRN (10:58)
[2018-06-11] MEDS: ONDANSETRON DISINTEGRATING 4 MG TAB PO PRN (11:07)
[2018-06-11] MEDS: ENOXAPARIN 40 MG/0.4 ML SYR SC SCH (11:10)
[2018-06-11] MEDS: LORazepam 1 MG TAB PO PRN ×2 (11:11→21:38)
[2018-06-11] MEDS: metFORMIN HCL 500 MG TAB PO SCH ×2 (11:11→20:40)
[2018-06-11] MEDS: ASPIRIN EC 81 MG TAB PO SCH (11:12)
[2018-06-11] MEDS: DIVALPROEX ER 500 MG TAB PO SCH ×2 (11:12→20:39)
[2018-06-11] MEDS ORDERED: GADOBUTROL 10 ML VIAL IVP ONE (11:33)
[2018-06-11] MEDS: LEVOTHYROXINE 200 MCG TAB PO SCH (13:11)
[2018-06-11] MEDS: LEVOTHYROXINE 25 MCG TAB PO SCH (13:11)
--- NOTE | 2018-06-11 13:30 | NEUROPROG ---
Assessment: Addendum to neurologic consultation from this morning: The MRI scan shows a very small left thalamic lacunar infarction that looks acute or subacute in nature but does not explain this visual complaint. There are no areas of acute ischemia. There is diffuse leptomeningeal enhancement which speaks to the fact that she probably does have a relatively low pressure headache syndrome and the plan to slow the rate of drainage with modification of the shunt setting seems appropriate. She should continue hospitalization and we need to continue to finish the workup for stroke risk factors to include carotid ultrasound and echocardiogram with bubble study. I would recommend Plavix 75 mg daily plus aspirin 81 mg daily for 21 days and then likely switch to daily aspirin but will continue to monitor her progress. Objective: Vital Signs Temp Pulse Resp BP Pulse Ox 36.7 C 82 17 169/98 H 95 06/11/18 12:00 06/11/18 12:00 06/11/18 12:00 06/11/18 12:00 06/11/18 12:00 Laboratory Results 06/11/18 04:48 06/11/18 04:48 06/10/18 06/11/18 06/12/18 05:59 05:59 05:59 Intake Total 900 Balance 900 PT 12.2 SEC (12.0-15.0) 06/11/18 04:48 INR 0.94 (0.83-1.16) 06/11/18 04:48 Allergies/Adverse Reactions: tetracycline [Tetracycline] Allergy (Severe, Verified 06/10/18 17:32) HIVES, RESP ARREST nickel [Nickel] Allergy (Intermediate, Verified 06/10/18 17:32) Hives adhesive [Adhesive] Allergy (Unknown, Verified 06/10/18 17:32) Unknown
--- NOTE | 2018-06-11 13:58 | SOAPPROG ---
SOAP Progress Note Assessment/Plan: Shunt reprogrammed to 1.5 from 1.0. Pt tolerated it well. Rechecked 5x and confirmed at 1.5 Objective: Vital Signs Temp Pulse Resp BP Pulse Ox 36.7 C 82 17 169/98 H 95 06/11/18 12:00 06/11/18 12:00 06/11/18 12:00 06/11/18 12:00 06/11/18 12:00 Laboratory Results 06/11/18 04:48 06/11/18 04:48 06/10/18 06/11/18 06/12/18 05:59 05:59 05:59 Intake Total 900 Balance 900 PT 12.2 SEC (12.0-15.0) 06/11/18 04:48 INR 0.94 (0.83-1.16) 06/11/18 04:48 ICD10 Worksheet Patient Problems: Problems Problem Status Onset Change in vision Acute Extraocular muscle palsy of left eye Acute Headache Acute Chest pain Acute Left tibial fracture Acute Pain of left anterior lower extremity Acute UTI (lower urinary tract infection) Acute
--- NOTE | 2018-06-11 14:39 | HOSPPROG ---
Hospitalist Progress Note Assessment/Plan: 72 y female with c/o vision changes. First encounter, chart reviewed. #Vision Changes - L eye deviated laterally with associated vision changes - multifactorial - CT Head in ED without acute abnormalities, noting interval slight increase in b/l parietal convexity slightly complex subdural hygromas - Neurosurgery consulted, recommend MRI - Patient is out of tPA window if this is related to CVA - Neurology consult, patient follows with Dr. Shaikh as outpatient, D/W Dr Shaikh #Lunar infarct -cont care #NPH s/p HARDWARE DESIGNER Shunt - CT Head on admission showing R transoccipatal ventroculostomy catheter with interval decrease in size of lateral ventricular system - Neurosurgery consulted -plan to adjust shunt -D/W neurosurgery #Migraine headaches - pt says not a migraine - Pt attempted sumatriptan without improvement - Patient has been receiving new injectable medications for migraines - Neurology consulted - PRN pain medication #Diabetes mellitus type 2 - restart home meds - SSI ordered as IP - Restart home insulin #Hypothyroidism - Continue home levothyroxine FEN: Regular DVT PPx: Lovenox Code: FULL Dispo: Change to inpt status requires further treatment and evaluation in hospital setting Subjective: Still has severe headache. Vision conts to be a problem. No other issues. Objective: Vital Signs Temp Pulse Resp BP Pulse Ox 36.7 C 82 17 169/98 H 95 06/11/18 12:00 06/11/18 12:00 06/11/18 12:00 06/11/18 12:00 06/11/18 12:00 Laboratory Results 06/11/18 04:48 06/11/18 04:48 06/10/18 06/11/18 06/12/18 05:59 05:59 05:59 Intake Total 900 Balance 900 PT 12.2 SEC (12.0-15.0) 06/11/18 04:48 INR 0.94 (0.83-1.16) 06/11/18 04:48 - Physical Exam Constitutional: chronically ill appearing, obese, uncomfortable Eyes: PERRL, anicteric sclera, other (deviation) Ears, Nose, Mouth, Throat: moist mucous membranes, hearing normal, ears appear normal Cardiovascular: No JVD, No tachycardia, No edema Respiratory: no respiratory distress, no rales or rhonchi, reduced air movement Gastrointestinal: normoactive bowel sounds, No tenderness, No ascites Skin: warm, normal color, No mottled Musculoskeletal: normal joint ROM, no joint effusions, generalized weakness Neurologic: AAOx3 Psychiatric: interacting appropriately, not anxious, not encephalopathic ICD10 Worksheet Patient Problems: Problems Problem Status Onset UTI (lower urinary tract infection) Acute Chest pain Acute Left tibial fracture Acute Pain of left anterior lower extremity Acute Headache Acute Extraocular muscle palsy of left eye Acute Change in vision Acute
--- NOTE | 2018-06-11 15:14 | PDMN ---
Medical Necessity Medical necessity: [facility] Neurology: 72 yo w/ c/o vision changes w/ noted L eye deviation laterally w/ associated vision changes in setting of known remote STOCK ROLLER shunt for NPH. Initially OBS for workup/tx. Neurology & Neurosurg consulted , unsure of etiology. MRI brain completed showing small L thalamic lacunar infarction (acute vs. subacute). Per Neurology pt will need further workup for stroke risk factors including carotid U/S and echo w/ bubble. Per Neurosurgery , STOCK ROLLER shunt reprogrammed to see if that is a factor. Change to IP status 06/11/18@ 1449 per TERMINAL PRESS OPERATOR order as pt requires additional MN for further dx testing and tx. Hx DM2, HTN, migraines, NPH s/p STOCK ROLLER shunt.
--- NOTE | 2018-06-11 16:33 | ASMTCMCOM ---
CM Note CM Note Notes: Pt is a 72 yo F who presents with vision changes. Neurology is consulted. Has history of migranes, diabetes, shunt. At this time PT is rec [facility]. OT eval pending. CM to follow to submit referrals. Plan: [facility]. Date Signed: 06/11/2018 04:32 PM Electronically Signed By:VAIBHAV Orellana
[2018-06-11] MEDS: GABAPENTIN 300 MG CAP PO SCH ×2 (17:50→20:40)
[2018-06-11] MEDS: SUMAtriptan 50 MG TAB PO PRN (17:51)
[2018-06-11] MEDS ORDERED: TEARS/DEXTRAN 70/HYPROMELLOSE 15 ML OPHT.BTL EACHEYE PRN (18:32)
[2018-06-11] MEDS: CITALOPRAM 20 MG TAB PO SCH (18:46)
[2018-06-11] MEDS ORDERED: INSULIN GLARGINE 100 UNITS/ML UNIT SC SCH (21:00)
[2018-06-11] MEDS ORDERED: ZOLPIDEM TARTRATE 5 MG TAB PO SCH (21:00)
[2018-06-11] MEDS ORDERED: VERAPAMIL ER 240 MG TAB PO SCH (21:00)
[2018-06-11] MEDS ORDERED: DONEPEZIL HCL 5 MG TAB PO SCH (21:00)
[2018-06-11] MEDS ORDERED: Mirabegron [Myrbetriq] 50 MG PO SCH (21:00)
[2018-06-11] MEDS ORDERED: SODIUM CL NASAL 45 ML BTL EACHNARE PRN (22:12)
[2018-06-12] MEDS: KETOROLAC 15 MG/1 ML SDV IVP SCH ×2 (00:41→06:15)
[2018-06-12] MEDS: LEVOTHYROXINE 25 MCG TAB PO SCH (06:14)
--- NOTE | 2018-06-12 06:53 | NEUSURGPN ---
Assessment/Plan: Assessment: 72 yo female that is admitted to IM with Neurology and NS consulted with left MR palsy and stroke workup Plan: -MR (medial rectus) palsy on left: pt admitted with HAs/vision changes and MR palsy-neuro stable -MRI of the brain shows acute left thalamic infarct as well as hygromas seen on CT and MRI -shunt reprogrammed yesterday to 1.5 to help with hygromas -PT/OT/ST-CPM -IM and Neurology on board -images and pt seen with Dr Lyon -call with any questions or concerns -pt understands and agrees -will discuss final plan from NS standpoint with Dr Lyon Subjective: Awake and alert. No new events or concerns. No f/c/n/v/d. No neck/chest/abd or gu complaints. Objective: AAO x 3, PERRLA/EOMI no droop CN 2-12 grossly intact except for left MR palsy +lt touch 5/5 BUE/BLE = Neuro Check Frequency: per routine Urinary Catheter in Place: No - Physician Discussed Patient with : Camron Patient Seen by : Camron Neurosurgery Physical Exam - Vitals, I&O, Labs I and O 06/11/18 06/12/18 06/13/18 05:59 05:59 05:59 Intake Total 300 Output Total 150 250 Balance 150 -250 Intake: Oral (ml) 300 Output: Urine (ml) 150 250 Toilet 150 250 Other: Intake Quantity Yes Sufficient Number of Voids Toilet 1 1 Number of Stools Toilet 1 Vital Signs Temp Pulse Resp BP Pulse Ox 37.0 C 70 16 132/69 H 91 L 06/12/18 04:00 06/12/18 04:00 06/12/18 04:00 06/12/18 04:00 06/12/18 04:00 ICD10 Worksheet Patient Problems: Problems Problem Status Onset Change in vision Acute Extraocular muscle palsy of left eye Acute Headache Acute Chest pain Acute Left tibial fracture Acute Pain of left anterior lower extremity Acute UTI (lower urinary tract infection) Acute
[2018-06-12] MEDS: SUMAtriptan 50 MG TAB PO PRN (07:16)
[2018-06-12] MEDS: INSULIN LISPRO 100 UNIT/ML SC SCH ×2 (07:54→11:46)
[2018-06-12] MEDS: GABAPENTIN 300 MG CAP PO SCH (08:58)
[2018-06-12] MEDS: DIVALPROEX ER 500 MG TAB PO SCH (08:58)
[2018-06-12] MEDS: metFORMIN HCL 500 MG TAB PO SCH (08:58)
[2018-06-12] MEDS: ENOXAPARIN 40 MG/0.4 ML SYR SC SCH (08:59)
[2018-06-12] MEDS: CITALOPRAM 20 MG TAB PO SCH (08:59)
[2018-06-12] MEDS: ASPIRIN EC 81 MG TAB PO SCH (08:59)
[2018-06-12] MEDS ORDERED: IRON CARBONYL 15 MG PO SCH (09:00)
[2018-06-12] MEDS ORDERED: Herbals/Supplements -Info Only PO SCH (09:00)
[2018-06-12] MEDS ORDERED: CALCIUM CARB W/VIT D 500 MG TAB PO SCH (09:00)
[2018-06-12] MEDS: LEVOTHYROXINE 200 MCG TAB PO SCH (09:09)
--- NOTE | 2018-06-12 09:32 | NEUROPROG ---
Assessment: 25 minute unit time. NIHSS 1. She will go back on atorvastatin 40mg daily that she had recently temporarily stopped. Continue ASA daily. Follow up with me in one month. OK with discharge. There is small stroke in left thalamus of unknown relevance. Likely small vessel disease. Follow up with Dr. Dale in next month. Objective: Vital Signs Temp Pulse Resp BP Pulse Ox 36.7 C 78 16 165/81 H 94 06/12/18 07:43 06/12/18 07:43 06/12/18 07:43 06/12/18 07:43 06/12/18 07:43 06/11/18 06/12/18 06/13/18 05:59 05:59 05:59 Intake Total 300 Output Total 150 250 Balance 150 -250 PT 12.2 SEC (12.0-15.0) 06/11/18 04:48 INR 0.94 (0.83-1.16) 06/11/18 04:48 Allergies/Adverse Reactions: tetracycline [Tetracycline] Allergy (Severe, Verified 06/10/18 17:32) HIVES, RESP ARREST nickel [Nickel] Allergy (Intermediate, Verified 06/10/18 17:32) Hives adhesive [Adhesive] Allergy (Unknown, Verified 06/10/18 17:32) Unknown
[2018-06-12] MEDS: ONDANSETRON DISINTEGRATING 4 MG TAB PO PRN (10:17)
--- NOTE | 2018-06-12 11:00 | ASMTCMCOM ---
CM Note CM Note Notes: Spoke with patient about PT recommendations for home health care. Patient is not interested in these services at this time. She states she and her will manage . CM let her know they can follow up and if she is doing well they can terminate services after a couple of visits. However, patient was adament she did not need home health at this time. CM explained if she changes her mind, her family can write an order and help her set up services. Patient to discharge home independently today. No further needs. Date Signed: 06/12/2018 10:59 AM Electronically Signed By:Casie Loja LCSW
--- NOTE | 2018-06-12 11:05 | ASMTLACE ---
LACE Length of stay for Answers: 1 day current admission Acuity / Level of Answers: Yes Care: Did the patient have an inpatient admission? Comorbidities - select Answers: Diabetes (uncontrolled or all that apply controlled) Opioid dependence / Chronic pain Other Notes: Hypothyroid, small stro ke # of Emergency department Answers: 1-2 visits in the last 6 months Social determinants Answers: Mental health diagnosis (anxiety, depression, pers onality disorders, etc.) Score: 14 Date Signed: 06/12/2018 11:04 AM Electronically Signed By:Casie Loja LCSW
--- NOTE | 2018-06-12 11:08 | ASDISCHSUM ---
Discharge Information Plan Status:Home with No Needs Medically Cleared to Leave:06/12/2018 Discharge Date:06/12/2018 CM D/C Disposition:Home, Routine, Self-Care ADT D/C Disposition:Home, Routine, Self-Care Projected Discharge Date:06/12/2018 Transportation at D/C:Family Discharge Delay Reason: Follow-Up Date:06/12/2018 Discharge Slot:1 - 8:01 am - 12:00 noon Final Diagnosis:Small stroke in left thalmus Placement Information Patient Contact Information Contact Name:KENJI Relationship: [address] City:[place] Alternate Phone: [facility]/Zip Code:[place] [address] Email: Financial Information Financial Class:Medicare Primary Plan Desc:MEDICARE INPATIENT Primary Plan Number:[id number] Secondary Plan Desc:[employer]/MDR SUPPLEMENT Secondary Plan Number:[id number] Assessment Information LACE LACE Length of stay for Answers: 1 day current admission Acuity / Level of Answers: Yes Care: Did the patient have an inpatient admission? Comorbidities - select Answers: Diabetes (uncontrolled or all that apply controlled) Opioid dependence / Chronic pain Other Notes: Hypothyroid, small stro ke # of Emergency department Answers: 1-2 visits in the last 6 months Social determinants Answers: Mental health diagnosis (anxiety, depression, pers onality disorders, etc.) Score: 14 Date Signed: 06/12/2018 11:04 AM Electronically Signed By:Casie Loja LCSW [facility] Progress Note CM Zeferino EASTON Note Notes: Pt is a 72 yo F who presents with vision changes. Neurology is consulted. Has history of migranes, diabetes, shunt. At this time PT is rec [facility]. OT eval pending. CM to follow to submit referrals. Plan: [facility]. Date Signed: 06/11/2018 04:32 PM Electronically Signed By:VAIBHAV Orellana [facility] Progress Note CM Note CM Note Notes: Spoke with patient about PT recommendations for home health care. Patient is not interested in these services at this time. She states she and her will manage . CM let her know they can follow up and if she is doing well they can terminate services after a couple of visits. However, patient was adament she did not need home health at this time. CM explained if she changes her mind, her family can write an order and help her set up services. Patient to discharge home independently today. No further needs. Date Signed: 06/12/2018 10:59 AM Electronically Signed By:Casie Loja LCSW Case Management Discharge Plan Note Case Management Discharge Discharge Order Complete? Answers: Yes Patient to Obtain Answers: Independently Medications Transportation Arranged Answers: Family/Friends Discharge Comments Notes: Patient is discharging home today independently. Home health care was recommended by PT , however, patient refused services. Patient was informed if she changes her mind she can contact her family doctor and get an order for home health. Patient feels she and her can manage. No further needs. Date Signed: 06/12/2018 11:07 AM Electronically Signed By:ALBA BravoW Intervention Information Intervention Type:*Incorrect Registration Date of Service:06/11/2018 09:32 AM Patient Type:Inpatient Staff Member:Cira Bonilla Hours: Discipline: Severity: Comment:
[2018-06-12 11:26] VITALS: BP 151/77
--- NOTE | 2018-06-12 15:26 | GDS ---
[f rep st] DISCHARGE SUMMARY DISCHARGE DIAGNOSES: 1. Headache. 2. Small left thalamic lacunar infarction. 3. Diffuse leptomeningeal enhancement. 4. Ventriculoperitoneal shunt. CONSULTATION: Neurology. NEUROSURGERY STUDIES AND PROCEDURES DONE: 1. CT of the head. 2. MRI of the brain. PHYSICAL EXAM: GENERAL: The patient is alert. VITAL SIGNS: Afebrile at 37.2, pulse 78, respirator y rate 16, blood pressure is 151/77. She is saturating 94% on room air. I have seen and evaluated t he patient on the day of discharge. HOSPITAL COURSE: The patient is a 72-year-old female who presents to the emergency room with complai nts of visual changes. She is evaluated and diagnosed with: 1. Left thalamus infarct. The relevance of this is unclear. During this hospitalization, she did r eceive a consultation from Neurology. The patient was started on aspirin therapy as well as Plavix. 2. Headache with vision changes. During this hospital course, the patient did have a consultation f rom Neurosurgery. Her shunt was adjusted, and her symptoms have significantly improved. Her headach e is improved. However, her visual changes have not returned to her baseline. She will follow up [facility] Neurosurgery in the outpatient setting. 3. History of migraine headaches. She will continue her home medications and this is improved with shunt adjustment. 4. Diabetes mellitus type 2. Home medications have been re-initiated. 5. Hypothyroidism. No evaluation needed and home Synthroid has been continued. DISPOSITION: She will be discharged home. Home health care has been offered at the time of disposit ion; however, the patient denies needing this and refuses assistance. She states that she and her vineet moulton can continue managing her care in the outpatient setting. DISCHARGE MEDICATIONS: Please refer to EMR form. FOLLOW UP: The patient will follow up with her primary care physician, Dr. Nayla Dale as well as Dr. Ran Shaikh and Neurosurgery. I have provided the patient a prescription for Lipitor at the time of disposition. I spent greater than 35 minutes in the care, coordination, and management of the patient's dispositio n, including discussion with Dr. Shaikh. /[id number]/MODL
[2018-06-13] MEDS ORDERED: ATORVASTATIN CALCIUM 40 MG TAB PO SCH (09:00)
== END 2018-06-12 13:02 | disposition home or self-care (01) | DRG 65 ==
LOC: CED 16:40 → INTOOBSV 18:32 → CEDHOLD 18:32 → F3N 21:00 → OBSVTOIN 06-11 14:49
PROVIDERS: ADMIT Internal Medicine; ATTEND Internal Medicine
DX: I63.81 Other cerebral infarction due to occlusion or stenosis of small artery (principal); H53.8 Other visual disturbances; G91.2 (Idiopathic) normal pressure hydrocephalus; G43.909 Migraine, unspecified, not intractable, without status migrainosus; E11.9 Type 2 diabetes mellitus without complications; E03.9 Hypothyroidism, unspecified; I10 Essential (primary) hypertension; F31.9 Bipolar disorder, unspecified; G89.29 Other chronic pain; F11.20 Opioid dependence, uncomplicated; Z87.891 Personal history of nicotine dependence; Z98.2 Presence of cerebrospinal fluid drainage device
CPT/HCPCS: 70450-PO; 80048-ER; 85025-QW-ER; 96374-ER; 97162-GP; 97166-GO; 97530-GO; 97535-GO; 99285-ER; A9585; G0378; J1650; J1815; J1885; J2405

== ENCOUNTER → 2018-07-13 | Outpatient (CLI) | payer OTHER, MEDICARE | LOC: CIMAGING 10:22 | PROVIDERS: ATTEND Physician Assistant | DX: I62.01 Nontraumatic acute subdural hemorrhage (principal); I63.81 Other cerebral infarction due to occlusion or stenosis of small artery; Z98.2 Presence of cerebrospinal fluid drainage device | CPT/HCPCS: 70450-PO ==

== ENCOUNTER 2018-07-15 16:44 | Observation (INO) | payer OTHER, MEDICARE ==
--- NOTE | 2018-07-15 16:50 | EDPHY ---
H & P Stated Complaint: double vision r eye x 1 hr with hx cva Time Seen by Provider: 07/15/18 16:50 - Personal History Current Tetanus Diphtheria and Acellular Pertussis (TDAP): Yes Tetanus Vaccine Date: within 10 years - Medical/Surgical History Hx Asthma: Yes Hx Chronic Respiratory Disease: Yes Hx Diabetes: Yes Hx Cardiac Disease: No Hx Renal Disease: No Hx Cirrhosis: No Hx Alcoholism: No Hx HIV/AIDS: No Hx Splenectomy or Spleen Trauma: No Other PMH: Chronic migraines, bipolar, anxiety, chronic hyponatremia, diabetes, normal pressure hydrocephalus, reactive airway disease, chronic pain syndrome with narcotic dependency, hypothyroidism,. hypertension, cognitive dysfunction ; SUPERINTENDENT GREENS shunt, tubal ligation, , orthopedic - Social History Smoking Status: Former smoker Constitutional: Initial Vital Signs Temperature (C) 36.7 C 07/15/18 16:46 Heart Rate 87 07/15/18 16:46 Respiratory Rate 17 07/15/18 16:46 Blood Pressure 125/78 H 07/15/18 16:46 O2 Sat (%) 92 07/15/18 16:46 O2 Delivery Mode Nasal Cannula O2 (L/minute) 2 Allergies/Adverse Reactions: tetracycline [Tetracycline] Allergy (Severe, Verified 07/15/18 16:45) HIVES, RESP ARREST nickel [Nickel] Allergy (Intermediate, Verified 07/15/18 16:45) Hives adhesive [Adhesive] Allergy (Unknown, Verified 07/15/18 16:45) Unknown Home Medications: Medication Instructions Recorded Citalopram [celeXA 20 MG (RX)] 40 mg PO DAILY 06/06/12 Divalproex ER [Depakote ER 500 MG 500 mg PO BID 06/06/12 (*)] Donepezil HCl [Aricept 5 MG (*)] 10 mg PO HS 06/06/12 Insulin Glargine [Lantus 100 20 units SQ HS 06/06/12 UNITS/ML] metFORMIN HCL [Glucophage 500 mg 1,000 mg PO BID 06/06/12 (*)] Verapamil HCl [Verapamil Sr] 240 mg PO HS 09/09/14 Levothyroxine [Synthroid 200 mcg 200 mcg PO DAILY 01/23/15 (*)] Gabapentin [Neurontin 300 MG (*)] 600 mg PO TID 05/19/15 Iron,Carbonyl [Iron Chews] 15 mg PO DAILY 04/26/17 LORazepam [Ativan (*)] 1 mg PO Q8HRS PRN 04/26/17 Ondansetron [Ondansetron Odt] 4 mg PO DAILY PRN 04/26/17 SUMAtriptan [Imitrex 50 MG (*)] 100 mg PO Q2H PRN 04/26/17 Aspirin EC [Aspirin EC 81 mg (*)] 81 mg PO DAILY 06/10/18 Calcium Carbonate/Vitamin D3 1 each PO DAILY 06/10/18 [Calcium 1,000 + D3 Caplet] Fremanezumab-Vfrm [Ajovy] 225 mg SQ Q30D 06/10/18 Herbals/Supplements -Info Only 1 ea PO DAILY 06/10/18 Levothyroxine [Synthroid 25 mcg 12.5 mcg PO DAILY06 06/10/18 (*)] Mirabegron [Myrbetriq] 50 mg PO HS 06/10/18 Zolpidem Tartrate [Ambien 5MG (*)] 5 mg PO HS 06/10/18 Acetaminophen [Tylenol 325mg (*)] 650 mg PO Q4HRS PRN tab 06/12/18 Atorvastatin Calcium [Lipitor 40 40 mg PO DAILY #30 tab 06/12/18 mg (*)] Sodium Cl Nasal [[place] (*)] 1 spray [place] PRN PRN btl 06/12/18 Medical Decision Making - Diagnostics Imaging Results: Imaging Impressions Head CT 07/15/18 16:54 Impression: 1. Stable position of the right ventriculostomy catheter. 2. Stable mild bilateral chronic subdural hematoma/hygroma. 3. Tiny visualized left thalamic infarct previously is not as well seen today. No evidence for acute intracranial abnormality. Results called and discussed with Boris Molina MD on July 15, 2018 at 1724 hours. Imaging: Discussed imaging studies w/ scallop cutter Radiologist, I viewed and interpreted images myself ED Course/Re-evaluation: CHIEF COMPLAINT: Double vision HISTORY OF PRESENT ILLNESS: The patient is a 72 y/o female with an extensive medical history including prior strokes and a SUPERINTENDENT GREENS shunt complaining of resolved double vision today. With her prior stroke, she developed vision problems primarily in her left eye. Today she developed the double vision in both eyes, but this has resolved. As this was similar symptoms to her prior stoke, she decided to present to the emergency department. She does not take anticoagulants, but does take a baby aspirin daily. No fever, headache, body aches, lightheadedness, chest pain, heart palpitations, shortness of breath, cough, abdominal pain, urinary or bowel complaints, numbness, paresthesias. REVIEW OF SYSTEMS: A comprehensive 10 system review of systems is otherwise negative aside from elements mentioned in the history of present illness and medical decision making. PHYSICAL EXAM: HR, BP, O2 Sat, RR. Temp noted General Appearance: Alert, well hydrated, appropriate, and non-toxic appearing. Head: Atraumatic without scalp tenderness or obvious injury Eyes: Pupils equal, round, reactive to light and accommodation, EOMI, no trauma , no injection. Ears: Clear bilaterally, no perforation, normal landmarks Nose: Atraumatic, no rhinorrhea, clear. Throat: There is no erythema or exudates, no lesions, normal tonsils, mucus membranes moist. Neck: Supple, 2+ carotid upstroke, nontender, no lymphadenopathy. Respiratory: No retractions, no distress, no wheezes, and no accessory muscle use. Lungs are clear to auscultation bilaterally. Cardiovascular: Regular rate and rhythm, no murmurs, rubs, or gallops. Bilateral carotid, radial, dorsalis pedis, and posterior tibial pulses intact. Good capillary refill all extremities. Gastrointestinal: Abdomen is soft, nontender, non-distended, no masses, no rebound, no guarding, no peritoneal signs. Musculoskeletal: Normal active ROM of all extremities, atraumatic. Neurological: Alert, appropriate, and interactive. The patient has normal DTRs and non-focal cranial nerves, motor, sensory, and cerebellar exam. Skin: No rashes, good turgor, no nodules on palpation. Past medical history: Chronic migraines, bipolar, anxiety, chronic hyponatremia , diabetes, normal pressure hydrocephalus, reactive airway disease, chronic pain syndrome with narcotic dependency, hypothyroidism, hypertension, cognitive dysfunction, SUPERINTENDENT GREENS shunt, tubal ligation, , orthopedic Family history: Denies Social history: at bedside, retired, lives in [place] DIAGNOSTICS/PROCEDURES/CRITICAL CARE TIME: EKG: The 12 lead EKG was interpreted by myself as sinus rhythm with a rate of 80. See hard copy and/or "tracemaster" electronic copy for interpretation. Head CT: Negative Head CTA: 50% left vertebral stenosis without clot Neck CTA: 80% right carotid stenosis without clot DIFFERENTIAL DIAGNOSIS: The differential diagnosis for the patient's neurologic deficits included but was not limited to peripheral causes, central causes including CVA, TIA, electrolyte abnormalities and dehydration, cardiogenic causes, atypical causes like migraine syndrome. MEDICAL DECISION MAKING: The patient is a 72 y/o female with an extensive medical history including prior strokes and a SUPERINTENDENT GREENS shunt presenting with resolved double vision today. With her prior stroke, she developed vision problems primarily in her left eye. She has a normal physical exam besides the subjective description of resolved diplopia. Labs, EKG, head CT, head CTA, and neck CTA ordered. 1652: Stroke alert called by myself due to patient's neurological deficits that are similar to prior strokes. 1722: I consulted with Dr. Bowman, radiologist, regarding this patient. She has a negative head CT compared to her CT 2 days ago. 1724: I interpreted patient's EKG as sinus rhythm with a rate of 80. 1730: I spoke with Dr. Bowman, radiologist, who reports that the patient has an 80% right carotid stenosis without clot, 50% left vertebral stenosis without clot 1736: I consulted with Dr. Jackson, radiologist from [facility], regarding this patient. Patient does not meet TPA criteria due to her recent stroke 2 weeks ago. I will admit this patient for further observation and evaluation. 1740: I consulted with Dr. Villa, hospitalist, regarding this patient. She accepts admission of this patient to rule out CVA vs. TIA. - Data Points Laboratory Results: Laboratory Results 07/15/18 17:00 07/15/18 17:00 07/15/18 07/15/18 07/15/18 17:02 17:00 17:00 WBC RBC Hgb POC Hgb 14.3 gm/dL gm/dL (12.6-16.3) Hct POC Hct 42 % % (38-47) MCV MCH MCHC RDW Plt Count MPV Neut % (Auto) Lymph % (Auto) Titus % (Auto) Eos % (Auto) Baso % (Auto) Nucleat RBC Rel Count Absolute Neuts (auto) Absolute Lymphs (auto) Absolute Monos (auto) Absolute Eos (auto) Absolute Basos (auto) Absolute Nucleated RBC Immature Gran % Immature Gran # POC Sodium 132 mEq/L L mEq/L (135-145) Sodium 131 mEq/L L mEq/L (135-145) POC Potassium 5.3 mEq/L H mEq/L (3.3-5.0) Potassium 5.5 mEq/L H mEq/L (3.5-5.2) POC Chloride 97 mEq/L mEq/L (97-110) Chloride 94 mEq/L L mEq/L (97-110) Carbon Dioxide 22 mEq/l mEq/l (22-31) POC Total CO2 25 mEq/L mEq/L (22-31) Anion Gap 15 mEq/L H mEq/L (6-14) POC BUN 27 mg/dL H mg/dL (7-23) BUN 30 mg/dL H mg/dL (7-23) Creatinine 1.0 mg/dL mg/dL (0.6-1.0) POC Creatinine 1.1 mg/dL H mg/dL (0.6-1.0) Estimated GFR 55 Glucose 63 mg/dL L mg/dL (70-100) POC Glucose 65 mg/dL L mg/dL (70-100) Calcium 10.0 mg/dL mg/dL (8.5-10.4) POC Troponin I 0.00 ng/mL ng/mL (0.00-0.08) 07/15/18 17:00 WBC 10.34 10^3/uL H 10^3/uL (3.80-9.50) RBC 4.16 10^6/uL L 10^6/uL (4.18-5.33) Hgb 13.8 g/dL g/dL (12.6-16.3) POC Hgb Hct 40.3 % % (38.0-47.0) POC Hct MCV 96.9 fL fL (81.5-99.8) MCH 33.2 pg pg (27.9-34.1) MCHC 34.2 g/dL g/dL (32.4-36.7) RDW 12.6 % % (11.5-15.2) Plt Count 295 10^3/uL 10^3/uL (150-400) MPV 9.6 fL fL (8.7-11.7) Neut % (Auto) 51.9 % % (39.3-74.2) Lymph % (Auto) 36.6 % % (15.0-45.0) Titus % (Auto) 10.5 % % (4.5-13.0) Eos % (Auto) 0.3 % L % (0.6-7.6) Baso % (Auto) 0.2 % L % (0.3-1.7) Nucleat RBC Rel Count 0.0 % % (0.0-0.2) Absolute Neuts (auto) 5.37 10^3/uL 10^3/uL (1.70-6.50) Absolute Lymphs (auto) 3.78 10^3/uL H 10^3/uL (1.00-3.00) Absolute Monos (auto) 1.09 10^3/uL H 10^3/uL (0.30-0.80) Absolute Eos (auto) 0.03 10^3/uL 10^3/uL (0.03-0.40) Absolute Basos (auto) 0.02 10^3/uL 10^3/uL (0.02-0.10) Absolute Nucleated RBC 0.00 10^3/uL 10^3/uL (0-0.01) Immature Gran % 0.5 % % (0.0-1.1) Immature Gran # 0.05 10^3/uL 10^3/uL (0.00-0.10) POC Sodium Sodium POC Potassium Potassium POC Chloride Chloride Carbon Dioxide POC Total CO2 Anion Gap POC BUN BUN Creatinine POC Creatinine Estimated GFR Glucose POC Glucose Calcium POC Troponin I Point of Care Test Results: Chemistry 07/15/18 07/15/18 17:02 17:00 POC Sodium 132 mEq/L L mEq/L (135-145) POC Potassium 5.3 mEq/L H mEq/L (3.3-5.0) POC Chloride 97 mEq/L mEq/L (97-110) POC Total CO2 25 mEq/L mEq/L (22-31) POC BUN 27 mg/dL H mg/dL (7-23) POC Creatinine 1.1 mg/dL H mg/dL (0.6-1.0) POC Glucose 65 mg/dL L mg/dL (70-100) POC Troponin I 0.00 ng/mL ng/mL (0.00-0.08) ISTAT H&H 07/15/18 17:02 POC Hgb 14.3 gm/dL gm/dL (12.6-16.3) POC Hct 42 % % (38-47) Departure - Departure Disposition: [facility] Acute Clinical Impression: Diplopia, TIA (transient ischemic attack) CVA (cerebral vascular accident) Qualifiers: CVA mechanism: unspecified Qualified Code(s): I63.9 - Cerebral infarction, unspecified Condition: Fair Report Scribed for: Boris Molina Report Scribed by: Tanya Mei Date of Report: 07/15/18 Time of Report: 16:51
[2018-07-15] MEDS ORDERED: IOPAMIDOL (ISOVUE 370) 100 ML BTL IV ONE (16:56)
[2018-07-15 17:09] LABS: PLATELET COUNT 295 10^3/uL (150-400)
[2018-07-15] MEDS ORDERED: HYDROCODONE/APAP 5/325 TAB PO PRN (19:15)
[2018-07-15] MEDS ORDERED: ACETAMINOPHEN 325 MG TAB PO PRN (19:15)
[2018-07-15] MEDS ORDERED: ONDANSETRON DISINTEGRATING 4 MG TAB PO PRN (19:15)
[2018-07-15] MEDS ORDERED: ONDANSETRON 4 MG/2 ML VIAL IVP PRN (19:15)
[2018-07-15] MEDS ORDERED: oxyCODONE IR 5 MG TAB PO PRN (19:15)
[2018-07-15] MEDS ORDERED: HYDROmorphONE/DILAUDID 1 MG/ML INJ IVP PRN (19:15)
[2018-07-15] MEDS ORDERED: PROMETHAZINE HCL 25 MG/ML INJ IVP PRN (19:15)
[2018-07-15] MEDS ORDERED: SODIUM CL NASAL 45 ML BTL EACHNARE PRN (19:20)
[2018-07-15] MEDS ORDERED: D50W 25 GM/50 ML SYR IVP PRN (19:21)
[2018-07-15] MEDS ORDERED: Mirabegron [Myrbetriq] 50 MG PO SCH (21:00)
[2018-07-15] MEDS ORDERED: LISINOPRIL 2.5 MG TAB PO SCH (21:00)
[2018-07-15] MEDS ORDERED: DONEPEZIL HCL 5 MG TAB PO SCH (21:00)
[2018-07-15] MEDS ORDERED: INSULIN GLARGINE 100 UNITS/ML UNIT SC SCH (21:00)
[2018-07-15] MEDS ORDERED: VERAPAMIL ER 240 MG TAB PO SCH (21:00)
--- NOTE | 2018-07-15 21:46 | PDGENHP ---
History and Physical - Chief Complaint diplopia - History of Present Illness 72 yo F with PMH of NPH s/p TREE WRAPPER shunt and recent diagnosis of acute lacunar infarct of left thalamus that presented with visual changes that were likely not associated with her stroke as well as PRITCHETT and leptomeningeal changes on MRI that were concerning for low pressure state leading to shunt reprograming. She notes that her left eye had been deviated for some time after that discharge but had essentially resolved other than some occasional mild peripheral vision issues. Today she developed again diplopia that this time seemed to be largely involving the right eye. She notes that has resolved other than a very brief recurrence in the ER that resolved prior to my seeing her. She also had a severe PRITCHETT this am and has been having more headaches than usual in the last several days. She notes she is scheduled to f/u with Dr. Lyon tomorrow after her recent shunt adjustment. She states that other than this episode today she has been feeling fine. She has slurred speech which she notes is chronic and agrees is unchanged. History Information - Allergies/Home Medication List Allergies/Adverse Reactions: tetracycline [Tetracycline] Allergy (Severe, Verified 07/15/18 16:45) HIVES, RESP ARREST nickel [Nickel] Allergy (Intermediate, Verified 07/15/18 16:45) Hives adhesive [Adhesive] Allergy (Unknown, Verified 07/15/18 16:45) Unknown Home Medications: Citalopram [celeXA 20 MG (RX)] 40 mg PO DAILY 06/06/12 [Last Taken 07/15/18] Divalproex ER [Depakote ER 500 MG (*)] 500 mg PO BID 06/06/12 [Last Taken 21:00] Donepezil HCl [Aricept 5 MG (*)] 10 mg PO HS 06/06/12 [Last Taken 07/14/18] Insulin Glargine [Lantus 100 UNITS/ML] 18 units SQ HS 06/06/12 [Last Taken 07/14] metFORMIN HCL [Glucophage 500 mg (*)] 1,000 mg PO BIDMEAL 06/06/12 [Last Taken 07/15/18 08:00] Verapamil HCl [Verapamil Sr] 240 mg PO HS 09/09/14 [Last Taken 07/14/18] Levothyroxine [Synthroid 200 mcg (*)] 200 mcg PO DAILY06 01/23/15 [Last Taken ] Gabapentin [Neurontin 300 MG (*)] 600 mg PO TID 05/19/15 [Last Taken 07/15/18 14 :00] LORazepam [Ativan (*)] 1 mg PO DAILY PRN 04/26/17 [Last Taken 07/15/18 13:00] Ondansetron [Ondansetron Odt] 4 mg PO DAILY PRN 04/26/17 [Last Taken 04/17/17] SUMAtriptan [Imitrex 50 MG (*)] 100 mg PO Q2H PRN 04/26/17 [Last Taken 07/15/18 13:00] Aspirin EC [Aspirin EC 81 mg (*)] 81 mg PO DAILY 06/10/18 [Last Taken 07/15/18] Calcium Carbonate/Vitamin D3 [Calcium 1,000 + D3 Caplet] 1 each PO DAILY [Last Taken 07/15/18] Fremanezumab-Vfrm [Ajovy] 225 mg SQ Q30D 06/10/18 [Last Taken 07/11/18] Herbals/Supplements -Info Only 1 ea PO DAILY 06/10/18 [Last Taken 06/10/18] Mirabegron [Myrbetriq] 50 mg PO HS 06/10/18 [Last Taken 07/07/18] Lisinopril [Zestril 2.5 mg (*)] 2.5 mg PO HS 07/15/18 [Last Taken 07/14/18] I have personally reviewed and updated: family history, medical history, social history, surgical history - Past Medical History CVA, diabetes type 2, hypertension, migraines Additional medical history: NPH sp TREE WRAPPER shunt. hypothyroid. gastric ulcer - Surgical History Reports: neurological surgery - Family History Positive for: non-pertinent - Social History Smoking Status: Former smoker Alcohol Use: None Drug Use: None Additional social history: Review of Systems Review of Systems: ROS: 10pt was reviewed & negative except for what was stated in HPI & below Physical Exam Physical Exam: Temp Pulse Resp BP Pulse Ox 36.5 C 85 18 144/76 H 95 07/15/18 19:29 07/15/18 19:29 07/15/18 19:29 07/15/18 19:29 07/15/18 19:29 O2 (L/minute) 2 Constitutional: no apparent distress, appears nourished Eyes: PERRL, anicteric sclera, EOMI Ears, Nose, Mouth, Throat: moist mucous membranes, hearing normal Cardiovascular: regular rate and rhythym, no murmur, rub, or gallop, No edema Respiratory: no respiratory distress, no rales or rhonchi, clear to auscultation Gastrointestinal: normoactive bowel sounds, soft, non-tender abdomen Genitourinary: no bladder tenderness Skin: warm, normal color Musculoskeletal: full muscle strength Neurologic: AAOx3, CN II-XII Intact Psychiatric: interacting appropriately, not anxious Lab Data & Imaging Review 07/15/18 17:00 07/15/18 17:00 WBC 10.34 10^3/uL (3.80-9.50) H 07/15/18 17:00 RBC 4.16 10^6/uL (4.18-5.33) L 07/15/18 17:00 Hgb 13.8 g/dL (12.6-16.3) 07/15/18 17:00 POC Hgb 14.3 gm/dL (12.6-16.3) 07/15/18 17:02 Hct 40.3 % (38.0-47.0) 07/15/18 17:00 POC Hct 42 % (38-47) 07/15/18 17:02 MCV 96.9 fL (81.5-99.8) 07/15/18 17:00 MCH 33.2 pg (27.9-34.1) 07/15/18 17:00 MCHC 34.2 g/dL (32.4-36.7) 07/15/18 17:00 RDW 12.6 % (11.5-15.2) 07/15/18 17:00 Plt Count 295 10^3/uL (150-400) 07/15/18 17:00 MPV 9.6 fL (8.7-11.7) 07/15/18 17:00 Neut % (Auto) 51.9 % (39.3-74.2) 07/15/18 17:00 Lymph % (Auto) 36.6 % (15.0-45.0) 07/15/18 17:00 [place] % (Auto) 10.5 % (4.5-13.0) 07/15/18 17:00 Eos % (Auto) 0.3 % (0.6-7.6) L 07/15/18 17:00 Baso % (Auto) 0.2 % (0.3-1.7) L 07/15/18 17:00 Nucleat RBC Rel Count 0.0 % (0.0-0.2) 07/15/18 17:00 Absolute Neuts (auto) 5.37 10^3/uL (1.70-6.50) 07/15/18 17:00 Absolute Lymphs (auto) 3.78 10^3/uL (1.00-3.00) H 07/15/18 17:00 Absolute Monos (auto) 1.09 10^3/uL (0.30-0.80) H 07/15/18 17:00 Absolute Eos (auto) 0.03 10^3/uL (0.03-0.40) 07/15/18 17:00 Absolute Basos (auto) 0.02 10^3/uL (0.02-0.10) 07/15/18 17:00 Absolute Nucleated RBC 0.00 10^3/uL (0-0.01) 07/15/18 17:00 Immature Gran % 0.5 % (0.0-1.1) 07/15/18 17:00 Immature Gran # 0.05 10^3/uL (0.00-0.10) 07/15/18 17:00 POC Sodium 132 mEq/L (135-145) L 07/15/18 17:02 Sodium 131 mEq/L (135-145) L 07/15/18 17:00 POC Potassium 5.3 mEq/L (3.3-5.0) H 07/15/18 17:02 Potassium 5.5 mEq/L (3.5-5.2) H 07/15/18 17:00 POC Chloride 97 mEq/L (97-110) 07/15/18 17:02 Chloride 94 mEq/L (97-110) L 07/15/18 17:00 Carbon Dioxide 22 mEq/l (22-31) 07/15/18 17:00 POC Total CO2 25 mEq/L (22-31) 07/15/18 17:02 Anion Gap 15 mEq/L (6-14) H 07/15/18 17:00 POC BUN 27 mg/dL (7-23) H 07/15/18 17:02 BUN 30 mg/dL (7-23) H 07/15/18 17:00 Creatinine 1.0 mg/dL (0.6-1.0) 07/15/18 17:00 POC Creatinine 1.1 mg/dL (0.6-1.0) H 07/15/18 17:02 Estimated GFR 55 07/15/18 17:00 Glucose 63 mg/dL (70-100) L 07/15/18 17:00 POC Glucose 86 mg/dL (70-100) 07/15/18 18:27 Calcium 10.0 mg/dL (8.5-10.4) 07/15/18 17:00 POC Troponin I 0.00 ng/mL (0.00-0.08) 07/15/18 17:00 Urine Color PALE YELLOW 07/15/18 18:25 Urine Appearance CLEAR 07/15/18 18:25 Urine pH 7.0 (5.0-7.5) 07/15/18 18:25 Ur Specific [place] 1.028 (1.002-1.030) 07/15/18 18:25 Urine Protein NEGATIVE (NEGATIVE) 07/15/18 18:25 Urine Ketones NEGATIVE (NEGATIVE) 07/15/18 18:25 Urine Blood NEGATIVE (NEGATIVE) 07/15/18 18:25 Urine Nitrate NEGATIVE (NEGATIVE) 07/15/18 18:25 Urine Bilirubin NEGATIVE (NEGATIVE) 07/15/18 18:25 Urine Urobilinogen NEGATIVE EU (0.2-1.0) 07/15/18 18:25 Ur Leukocyte Esterase TRACE (NEGATIVE) H 07/15/18 18:25 Urine RBC NONE SEEN /hpf (0-3) 07/15/18 18:25 Urine WBC 1-3 /hpf (0-3) 07/15/18 18:25 Ur Epithelial Cells NONE SEEN /lpf (NONE-1+) 07/15/18 18:25 Urine Glucose NEGATIVE (NEGATIVE) 07/15/18 18:25 Visualized and Interpreted imaging results: Yes Interpretation: head CT: stable positioning of shunt, stable mild chronic SDH. 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 Has had initial w/u for possible recurrent cva, seen by [facility] neurology who do not recommend tpa. Will monitor neuro sxs, have requested neurology to evaluate as well as Dr. Lyon of neurosurgery and both will see her in am. # recent CVA: at that time presentation was complaint of visual changes but small left thalamic infarct not felt to be causing her visual sxs, continued on asa # headache: patient notes her headaches have been getting worse again, recently felt to be possibly low pressure headaches and shunt was adjusted for that, will monitor for now, nsg in am # carotid stenosis: with right 70% stenosis of carotid bulb and likely warrants surgical evaluation after dc or sooner if felt warranted by neurology # NPH: as above # DM2: holding metformin given contrast dye etc, SSI, recent a1c of 6.7 # observation status Patient new to my care. Old records reviewed and summarized as above. Care plan reviewed with ER doctor and Dr. Lyon as above. Further hx obtained from patients present at bedside.
[2018-07-15] MEDS: DIVALPROEX ER 500 MG TAB PO SCH (21:53)
[2018-07-15] MEDS: GABAPENTIN 300 MG CAP PO SCH (21:53)
[2018-07-16 05:13] LABS: PLATELET COUNT 258 10^3/uL (150-400)
[2018-07-16] MEDS ORDERED: LEVOTHYROXINE 200 MCG TAB PO SCH (06:00)
[2018-07-16] MEDS: INSULIN LISPRO 100 UNIT/ML SC SCH ×2 (08:11→12:27)
--- NOTE | 2018-07-16 08:25 | NEUSURGPN ---
Assessment/Plan: Assessment: 72 yr old female with visual changes, now resolved Plan: Please see dictated consult when complete -Visual changes on admission now resolved per patient -CT head shows stable bilateral chronic SDH -[employer] Strata Valve set to 1.5. Checked with graphics programmer at bedside -Ok to dispo from neurosurgery standpoint -Patient was seen by Dr Lyon as well Please call for questions/concerns Subjective: Denies headache or visual changes Objective: AxOx4 Mildly slurred speech intermittently CN 2-12 grossly intact with mild right facial droop MAEx4 5/5 BUE, BLE Neuro Check Frequency: per routine Urinary Catheter in Place: No - Physician Patient Seen by : [facility] Physical Exam - Vitals, I&O, Labs I and O 07/15/18 07/16/18 07/17/18 05:59 05:59 05:59 Intake Total 300 Output Total 300 Balance 300 -300 Weight 83.007 kg Intake: Oral (ml) 300 Output: Urine (ml) 300 Toilet 300 Other: Number of Voids 1 Toilet 4 1 Vital Signs Temp Pulse Resp BP Pulse Ox 36.6 C 70 17 106/54 L 95 07/16/18 07:39 07/16/18 07:39 07/16/18 07:39 07/16/18 07:39 07/16/18 07:39 Laboratory Results 07/16/18 04:58 07/16/18 04:58 ICD10 Worksheet Patient Problems: Problems Problem Status Onset CVA (cerebral vascular accident) Acute Diplopia Acute TIA (transient ischemic attack) Acute Change in vision Acute Chest pain Acute Extraocular muscle palsy of left eye Acute Headache Acute Left tibial fracture Acute Pain of left anterior lower extremity Acute UTI (lower urinary tract infection) Acute
[2018-07-16] MEDS: GABAPENTIN 300 MG CAP PO SCH (08:42)
[2018-07-16] MEDS: DIVALPROEX ER 500 MG TAB PO SCH (08:42)
[2018-07-16] MEDS ORDERED: CITALOPRAM 20 MG TAB PO SCH (09:00)
[2018-07-16] MEDS ORDERED: CALCIUM CARB W/VIT D 500 MG TAB PO SCH (09:00)
[2018-07-16] MEDS ORDERED: ATORVASTATIN CALCIUM 40 MG TAB PO SCH (09:00)
[2018-07-16] MEDS ORDERED: ASPIRIN EC 81 MG TAB PO SCH (09:00)
--- NOTE | 2018-07-16 10:36 | GCON ---
[f rep st] CONSULTATION CHIEF COMPLAINT: Diplopia. HISTORY OF PRESENT ILLNESS: Patient is a 72-year-old female with a history of ELECTRICAL INSTALLATION SUPERVISOR shunt placement by Dr. Lyon several years ago for NPH. Patient was recently admitted a few weeks ago with a diagnosis of acute lacunar infarct of the left thalamus that presented with visual changes that were likely not associated with her stroke. Patient states that she began having diplopia in her right eye yesterday and was recommended to come to the emergency room for further evaluation. This symptom has ultimately resolved and she states that it would just come and go briefly. Patient denies any other neurological symptoms and denies any headaches other than intermittent headaches that she has had for some time. She was scheduled to see Dr. Lyon in the office today for shunt programming. She has some mild slurred speech, which she states is chronic and is intermittent throughout the exam. REVIEW OF SYSTEMS: A 10-point review of systems was performed and negative aside from what was mentioned in the HPI. ALLERGIES: Tetracycline, nickel, and adhesive. HOME MEDICATIONS: divalproex ER 500 mg p.o. b.i.d., donepezil HCL 10 mg p.o. q.h.s., Insulin 18 units subcu h.s., metformin 1000 mg p.o. b.i.d., verapamil 240 mg p.o. q.h.s., levothyroxine 200 mcg p.o. daily, gabapentin 600 mg p.o. t.i.d., lorazepam 1 mg p.o. daily p.r.n., ondansetron 4 mg p.o. daily, Imitrex 100 mg p.o. q..2 hours p.r.n., aspirin 81 mg p.o. daily, calcium vitamin D supplement 1 capsule daily, mirabegron 50 mg p.o. at bedtime, and lisinopril 2.5 mg p.o. q.h.s. PAST MEDICAL HISTORY: CVA, type 2 diabetes, hypertension, migraine, normal- pressure hydrocephalus, hypothyroid, gastric ulcer. SURGICAL HISTORY: ELECTRICAL INSTALLATION SUPERVISOR shunt placement. FAMILY HISTORY: Reviewed and noncontributory to current situation. SOCIAL HISTORY: Patient is a former smoker. She denies any alcohol use and denies any illicit drug use. Patient is . DIAGNOSTICS/LABORATORY RESULTS: White blood cell count 8.49, hemoglobin 11.9, hematocrit 34.2, platelets are 258. Sodium 131, potassium 4.7, BUN 23, creatinine 0.7, glucose is 83. DIAGNOSTIC/IMAGING: CT of the head performed without contrast on July 15, 2018, demonstrates stable position of the right ventriculostomy catheter, stable mild bilateral chronic subdural hematoma/hygroma and tiny visualized left ophthalmic infarct previously seen is not seen on this exam. No evidence for acute intracranial abnormality. CT-A of the head and neck performed on July 15, 2018, demonstrates mixed calcified and noncalcified atherosclerotic plaque at the right carotid bulb with approximately 70% stenosis, minimal atherosclerotic plaque at the left carotid bulb without stenosis, calcified plaque at the distal left vertebral artery with approximately 50% stenosis. PHYSICAL EXAM: VITAL SIGNS: Blood pressure is 106/54, heart rate 70, respiratory rate 17, oxygen saturations 95% on room air, temperature is 36.6 degrees Celsius. HEENT: Head is normocephalic and atraumatic. Pupils are equal, round, and reactive to. . RESPIRATORY/CARDIAC: Deferred. ABDOMEN: Deferred. GENITALIA/RECTAL: Deferred. NEUROLOGIC: Patient is awake and alert and oriented to name, place, location, date, time, and situation. Her memory is intact to immediate, past, and current events. Speech: Patient has mild aphasia throughout the exam, which she notes to be chronic. Cranial nerves 2 through 12 are grossly intact, aside from a mild right facial droop in 10 protrusion mildly drift to the right. Motor: Patient has 5/5 strength in all muscle groups, bilateral upper and lower extremities to include deltoids, biceps, triceps, brachialis, wrist flexors, extensors, intrinsics, iliopsoas, quadriceps, hamstrings, plantar flexion, dorsiflexion, EHL testing. Reflexes: Brachioradialis and knee jerk are 2+ out of 4. Johanny sign is negative. Clonus is negative. Babinski is negative. ASSESSMENT AND PLAN: Patient is a 72-year-old female with past history of a [employer] ELECTRICAL INSTALLATION SUPERVISOR shunt placement by Dr. Lyon. She was admitted a few weeks ago with stroke-like symptoms and was found to have some chronic subdural hygromas. At that time, her shunt was programmed to 1.5. I confirmed shunt setting this morning at the bedside, which is a 1.5. CT of the brain shows stable mild hygromas. Patient was admitted with some intermittent right eye diplopia, which she states has resolved. Patient was scheduled to see us in the office today, but we have confirmed the shunt settings at the bedside this morning. It is okay for the patient to disposition from a neurosurgery standpoint and she will follow us in the office as needed. Patient was seen and examined by neurosurgical services this morning at 0745 at the bedside. /[id number]/MODL MTDD
[2018-07-16] MEDS ORDERED: SUMAtriptan 50 MG TAB PO PRN (12:04)
--- NOTE | 2018-07-16 12:15 | ASMTCMCOM ---
CM Note CM Note Notes: Patient plan of care discussed with MD. Patient to be evaluated per neurology. No acute needs identified. CM available should needs arise. Plan: DC to home. Date Signed: 07/16/2018 12:14 PM Electronically Signed By:Carol Lucas RN
[2018-07-16] MEDS: LORazepam 1 MG TAB PO PRN ×2 (12:26)
--- NOTE | 2018-07-16 15:24 | PDDCSUM ---
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 Has had initial w/u for possible recurrent cva, seen by [facility] neurology who do not recommend tpa. Dr. Lyon of neurosurgery seen this morning, MANAGER TERMINAL shunt working properly. Outpatient followup recommended with primary neurologist, Dr. Shaikh. # recent CVA: at that time presentation was complaint of visual changes but small left thalamic infarct not felt to be causing her visual sxs, continued on asa # headache: patient notes her headaches have been getting worse again, recently felt to be possibly low pressure headaches and shunt was adjusted for that, neurosurgery evaluation as above # carotid stenosis: with right 70% stenosis of carotid bulb, outpatient f/u with Dr. Soto on 07/19 # NPH: as above # DM2: holding metformin given contrast dye etc, SSI, recent a1c of 6.7
[2018-07-16 15:55] VITALS: BP 136/93
--- NOTE | 2018-07-16 19:27 | GCON ---
[f rep st] CONSULTATION NEUROLOGY CONSULTATION REFERRING PHYSICIAN: Carolyn Villa MD CHIEF COMPLAINT: Diplopia, resolved. HISTORY OF PRESENT ILLNESS: The patient is a very pleasant 72-year-old lady who is well known to the neurosurgery and neurology service as she has a previous diagnosis of normal-pressure hydrocephalus and has a KETTLE OPERATOR HEAD shunt for treatment. She had an episode of diplopia last year and was found to have a left thalamic infarct. She is on statin and aspirin therapy. She came back to the ER yesterday because of transient diplopia that was binocular. She felt objects were moving diagonal to one another with both eyes open. However, the symptoms fluctuated, spontaneously resolved, and then recurred over about a 2- hour period and then completely resolved. She had a stat evaluation in the ED including CTA of the head and neck and head CT. Head CT without contrast shows stable positioning of the KETTLE OPERATOR HEAD shunt and the bilateral hygromas that are chronic. The previous small lacunar infarct in the left thalamus was unchanged from last year. CTA of the head and neck shows 70% stenosis of the right carotid bulb and minimal at the left. Angiogram of the head showed no acute thrombosis. Her symptoms have resolved and she has been seen by Neurosurgery. She was recently seen as an outpatient and had her shunt changed to 1.5. Discussed at length with Dr. Lyon who agrees it may take several months to fully acclimate to pressure check setting changes on the KETTLE OPERATOR HEAD shunt. No other acute motor or sensory symptoms. REVIEW OF SYSTEMS: A ten point review was done, only pertinent to the HPI. For past medical history, social history, family history, home medications, allergies, see Dr. Villa's H and P. PHYSICAL EXAMINATION: VITAL SIGNS: Blood pressure is 106/54, temperature 36.6 , heart rate is 17. GENERAL: In no acute distress. Very pleasant. NEUROLOGIC : On cranial nerve exam, she has full extraocular movements without any abnormalities. No double vision either with the binocular or monocular vision. Face is symmetric. Facial sensation is intact. No focal weakness. Light touch is normal throughout all 4 extremities. Coordination is normal in upper and lower extremities. IMPRESSION: 1. Diplopia, resolved. 2. Previous diagnosis of normal-pressure hydrocephalus, status post KETTLE OPERATOR HEAD shunt. 3. Right carotid artery stenosis ~ 70% PLAN: Her transient intermittent diplopia symptoms may be related to intracranial pressure changes in the setting of bilateral hygromas, recent shunt pressure change and the diagnosis of hydrocephalus. Discussed at length the patient. Certainly, recurrent cerebral infarct or post-stroke recrudescence is on the differential diagnosis as she has had this previously. Her symptoms had a temporal profile more fitting with intracranial pressure fluctuations. Going forward, I recommend she have a close followup with Neurosurgery to monitor her shunt. She is agreeable. In addition, I discussed her at length with Dr. Lyon who agrees it may take several months to fully acclimate to pressure check setting changes on the KETTLE OPERATOR HEAD shunt. The patient states she does not want another MRI brain. In addition, she should stay on her baby aspirin and statin therapy for stroke prophylaxis. She should have an outpatient 30-day event monitor to screen for paroxysmal atrial fibrillation. Finally, she needs to follow up with Dr. Zac Soto for her 70% right carotid artery stenosis. She is agreeable and will discuss treatment options with Dr. Soto. No further recommendations now. We will sign off and follow up as needed. Please do not hesitate to call with any questions or changes in this patient's neurologic status. Seventy total minutes floor time; over 50% in direct counseling and coordination of care. She will return to the emergency department for any acute neurologic symptoms. /[id number]/MODL MTDD
--- NOTE | 2018-07-17 13:11 | CPEKG ---
Test Reason : OPEN Blood Pressure : / mmHG Vent. Rate : 080 BPM Atrial Rate : 080 BPM P-R Int : 159 ms QRS Dur : 087 ms QT Int : 380 ms P-R-T Axes : 067 008 050 degrees QTc Int : 439 ms Sinus rhythm Confirmed by Mulugeta Booker ([id number]) on 07/17/2018 1:10:52 PM Referred By: Carolyn Villa Confirmed By:Mulugeta Booker
== END 2018-07-16 16:19 | disposition home or self-care (01) ==
LOC: F3N 19:14
PROVIDERS: ADMIT Internal Medicine; ATTEND Internal Medicine
DX: H53.2 Diplopia (principal); Z86.73 Personal history of transient ischemic attack (TIA), and cerebral infarction without residual deficits; G91.2 (Idiopathic) normal pressure hydrocephalus; Z98.2 Presence of cerebrospinal fluid drainage device; R51 Headache; I65.21 Occlusion and stenosis of right carotid artery; E11.9 Type 2 diabetes mellitus without complications; Z79.4 Long term (current) use of insulin; F31.9 Bipolar disorder, unspecified; F41.9 Anxiety disorder, unspecified; J45.909 Unspecified asthma, uncomplicated; G89.29 Other chronic pain; F11.20 Opioid dependence, uncomplicated; E03.9 Hypothyroidism, unspecified; I10 Essential (primary) hypertension; Z87.891 Personal history of nicotine dependence
CPT/HCPCS: 70450; 70496; 70498; 92523; 93005; 96372; 97161; 97165; 99285; G0378; 82435-PO; 82565-PO; 82947-PO; 82947-QW; 84132-PO; 84295-PO; 84484-ER; 84520-PO; 85014-ER; J1815; Q9967

== ENCOUNTER 2018-07-31 07:49 | Inpatient (IN) | payer OTHER, MEDICARE ==
[2018-07-31] MEDS ORDERED: ceFAZolin 2 GM/DEXTROSE 100 ML IV ONE (09:05)
[2018-07-31] MEDS ORDERED: BUPIVACAINE 0.5% 30 ML SDV ONE (09:18)
[2018-07-31] MEDS ORDERED: PROTAMINE SULFATE 50 MG/5 ML VIAL IVP ONE (09:19)
[2018-07-31] MEDS ORDERED: THROMBIN (BOVINE) 20,000 UNIT VIAL TP ONE (09:20)
--- NOTE | 2018-07-31 09:24 | PDANEPAE ---
ANE Past Medical History - Cardiovascular History Hx Hypertension: Yes Hx Arrhythmias: No Hx Chest Pain: No Hx Coronary Artery / Peripheral Vascular Disease: No Hx CHF / Valvular Disease: No Hx Palpitations: No Cardiovascular History Comment: HX OF HTN BUT USES VERAPAMIL FOR HTN AND MIGRAINES - Pulmonary History Hx COPD: No Hx Asthma/Reactive Airway Disease: No Hx Recent Upper Respiratory Infection: No Hx Oxygen in Use at Home: Yes O2 in Use at Home (L/minute): 2.L at night Hx Sleep Apnea: Yes Sleep Apnea Screening Result - Last Documented: Positive Pulmonary History Comment: FARZANEH. hx of asthma - Neurologic History Hx Cerebrovascular Accident: No Hx Seizures: No Hx Dementia: No Neurologic History Comment: MIGRAINES. Shunt -NPH - Endocrine History Hx Diabetes: Yes Endocrine History Comment: diabetes type 2. hypothyroid - Renal History Hx Renal Disorders: No Renal History Comment: urinary incontinence. - Liver History Hx Hepatic Disorders: No - Neurological & Psychiatric Hx Hx Neurological and Psychiatric Disorders: Yes Neurological / Psychiatric History Comment: BI-POLAR - Cancer History Hx Cancer: Yes Cancer History Comment: SKIN CA REMOVED - Congenital Disorder History Hx Congenital Disorders: No - GI History Hx Gastrointestinal Disorders: Yes Gastrointestinal History Comment: gastric ulcer. OCCASSIONAL HEARTBURN. OCCASSIONAL CONSTIPATION - Other Health History Other Health History: "EXTREMLY DRY" SKIN. sinusitis. bilatat cataract sx. iron deficency anemia. unperforated ulcer - Chronic Pain History Chronic Pain: Yes (MIGRAINES) - Surgical History Prior Surgeries: Left tibia ORIF 2015. HW REMOVAL 01/2014. LEFT TIB/FIB ORIF . 01/2008 S/P FALL FX SKULL. 09/2007 SHUNT PLACEMENT FOR NPH. EMERGANT C - SECTION. TUBAL LIGATION. BREAST BIOPSIES X2 ANE Review of Systems Review of Systems: - Exercise capacity METS (RN): 2 METS ANE Patient History - Allergies Allergies/Adverse Reactions: tetracycline [Tetracycline] Allergy (Severe, Verified 07/31/18 09:14) HIVES, RESP ARREST nickel [Nickel] Allergy (Intermediate, Verified 07/31/18 09:14) Hives adhesive [Adhesive] Allergy (Unknown, Verified 07/31/18 09:14) Unknown - Home Medications Home Medications: Citalopram [celeXA 20 MG (RX)] 40 mg PO DAILY 06/06/12 [Last Taken 07/15/18] Divalproex ER [Depakote ER 500 MG (*)] 500 mg PO BID 06/06/12 [Last Taken 21:00] Donepezil HCl [Aricept 5 MG (*)] 10 mg PO HS 06/06/12 [Last Taken 07/14/18] Insulin Glargine [Lantus 100 UNITS/ML] 18 units SQ HS 06/06/12 [Last Taken 07/14] metFORMIN HCL [Glucophage 500 mg (*)] 1,000 mg PO BIDMEAL 06/06/12 [Last Taken 07/15/18 08:00] Verapamil HCl [Verapamil Sr] 240 mg PO HS 09/09/14 [Last Taken 07/14/18] Levothyroxine [Synthroid 200 mcg (*)] 200 mcg PO DAILY06 01/23/15 [Last Taken ] Gabapentin [Neurontin 300 MG (*)] 600 mg PO TID 05/19/15 [Last Taken 07/15/18 14 :00] LORazepam [Ativan (*)] 1 mg PO DAILY PRN 04/26/17 [Last Taken 07/15/18 13:00] Ondansetron [Ondansetron Odt] 4 mg PO DAILY PRN 04/26/17 [Last Taken 04/17/17] SUMAtriptan [Imitrex 50 MG (*)] 100 mg PO Q2H PRN 04/26/17 [Last Taken 07/15/18 13:00] Aspirin EC [Aspirin EC 81 mg (*)] 81 mg PO DAILY 06/10/18 [Last Taken 07/15/18] Calcium Carbonate/Vitamin D3 [Calcium 1,000 + D3 Caplet] 1 each PO DAILY [Last Taken 07/15/18] Fremanezumab-Vfrm [Ajovy] 225 mg SQ Q30D 06/10/18 [Last Taken 07/11/18] Herbals/Supplements -Info Only 1 ea PO DAILY 06/10/18 [Last Taken 06/10/18] Mirabegron [Myrbetriq] 50 mg PO HS 06/10/18 [Last Taken 07/07/18] Lisinopril [Zestril 2.5 mg (*)] 2.5 mg PO HS 07/15/18 [Last Taken 07/14/18] Montelukast Sodium [Singulair 10 mg (*)] 10 mg PO DAILY@1800 07/27/18 [Last Taken Unknown] Olopatadine HCl 1 spray NS BID PRN 07/31/18 [Last Taken Unknown] - NPO status NPO Since - Liquids (Date): 07/31/18 NPO Since - Liquids (Time): 23:00 NPO Since - Solids (Date): 07/30/18 NPO Since - Solids (Time): 22:00 - Smoking Hx Smoking Status: Former smoker - Family Anes Hx Family Hx Anesthesia Complications: NONE ANE Labs/Vital Signs - Vital Signs Blood Pressure: 112/57 Heart Rate: 75 Respiratory Rate: 16 O2 Sat (%): 89 Height: 154.94 cm Weight: 85.729 kg ANE Physical Exam - Airway Neck exam: decreased ROM Mallampati Score: Class 3 Mouth exam: normal dental/mouth exam - Pulmonary Pulmonary: no respiratory distress - Cardiovascular Cardiovascular: regular rate and rhythym - ASA Status ASA Status: III ANE Anesthesia Plan Anesthesia Plan: general endotracheal anesthesia Lines/Monitors: arterial line
[2018-07-31 09:33] LABS: PLATELET COUNT 345 10^3/uL (150-400)
[2018-07-31] MEDS ORDERED: ONDANSETRON 4 MG/2 ML VIAL ONE ×2 (09:33→12:06)
[2018-07-31] MEDS ORDERED: PROPOFOL 200 MG/20 ML VIAL ONE (09:33)
[2018-07-31] MEDS ORDERED: ROCURONIUM 50 MG/5 ML VIAL ONE (09:33)
[2018-07-31] MEDS ORDERED: HEPARIN 10,000 UNIT/10 ML MDV (1,000 UNIT/ML) ONE (09:33)
[2018-07-31] MEDS ORDERED: LIDOCAINE 2% 100 MG/5 ML SYR ONE (09:33)
[2018-07-31] MEDS ORDERED: ALBUTEROL 3 ML DEYVIAL IH PRN (11:31)
[2018-07-31] MEDS ORDERED: NALOXONE HCL 0.4 MG/ML INJ IVP PRN (11:31)
[2018-07-31] MEDS ORDERED: ONDANSETRON 4 MG/2 ML VIAL IVP PRN ×2 (11:31→11:51)
[2018-07-31] MEDS ORDERED: SUGAMMADEX SODIUM 200 MG/2 ML VIAL IVP ONE (11:34)
[2018-07-31] MEDS ORDERED: HYDROmorphONE/DILAUDID 1 MG/ML INJ IVP PRN (11:51)
[2018-07-31] MEDS ORDERED: OLOPATADINE HCL EACHNARE PRN (11:55)
[2018-07-31] MEDS ORDERED: SODIUM CL NASAL 45 ML BTL EACHNARE PRN (11:55)
[2018-07-31] MEDS ORDERED: ENALAPRILAT DIHYDRATE 1.25 MG/ML VIAL IVP PRN (11:57)
[2018-07-31] MEDS ORDERED: LABETALOL HCL 5 MG/ML 20 ML MDV ONE (11:59)
[2018-07-31] MEDS ORDERED: NS 1,000 ML IV SCH (12:00)
[2018-07-31] MEDS ORDERED: FREMANEZUMAB VFRM 225 MG SQ SCH (12:00)
--- NOTE | 2018-07-31 12:01 | POSTANESTH ---
Post Anesthetic Evaluation Cardiovascular Status: Similar to Pre-Op Cond Respiratory Status: Similar to Pre-op Cond. Level of Consciousness/Mental Status: Can Participate in Eval, Mildly Sleepy, Arousable Pain Control: Adequate, Prn Tx Ordered Nausea/Vomiting Control: Adequate, Prn Tx Ordered Complications Possibly Related to Anesthesia: None Noted
--- NOTE | 2018-07-31 12:03 | POSTOPPROG ---
Post Op Note Date of Operation: 07/31/18 Surgeon: Zac Soto Process Artist: Naomy Regalado Anesthesiologist: Alex Francis Anesthesia: GET(General Endotracheal) Pre-op Diagnosis: R critical carotid stenosis, hx CVA Post-op Diagnosis: same Procedure: R CEA c EEG monitoring c patch closure Findings: tight focal calcified plaque, no eeg changes, good black flow Inf/Abcess present in the surg proc area at time of surgery?: No EBL: Minimal Complications: none Bowel Protocol: N/A Clean Closure Performed: N/A Specimen(s): plaque and cervical node to pathology
[2018-07-31] MEDS ORDERED: fentaNYL 100 MCG/2 ML INJ ONE (12:20)
[2018-07-31] MEDS: fentaNYL 100 MCG/2 ML INJ IVP PRN ×2 (12:22→12:45)
--- NOTE | 2018-07-31 12:30 | GOP ---
[f rep st] OPERATIVE REPORT DATE OF OPERATION: 07/31/2018 SURGEON: Zac Soto MD HEEL NAILING MACHINE OPERATOR: NYLA Lewis. ANESTHESIOLOGIST: Dr. Bran Francis. PREOPERATIVE DIAGNOSIS: Critical right carotid stenosis. POSTOPERATIVE DIAGNOSIS: Critical right carotid stenosis. PROCEDURE PERFORMED: Right carotid endarterectomy with EEG monitoring. FINDINGS: Patient was found to have a tight calcified stenosis at the origin of the internal carotid artery. She had no EEG findings during the procedure, and she woke up neurologically intact. She h ad very good backflow from the internal carotid stump. DESCRIPTION OF PROCEDURE: The patient was taken to the operating room where she received satisfactor y general endotracheal anesthesia by Dr. Francis. She was heparinized before induction of general a nesthesia, and prepped and draped in the usual sterile fashion. An incision was made along the anter ior border of the sternocleidomastoid muscle with care to avoid injury to her ventriculoperitoneal sh unt, which was running posteriorly in her neck and anterior chest. Dissection extended down through the platysma and subcutaneous tissue, and through the superficial fascia. The common facial vein was isolated and multiply tied and divided exposing the carotid arterial tree, which was dissected free carefully with the vessel loops around the common carotid, external carotid, and internal carotid art eries. After adequate exposure was achieved, the patient was given additional heparin, and after moose quate circulation time, the vessels were occluded with vessel loops and arteriotomy was made in the c ommon carotid artery and extended up through the calcified plaque into the internal carotid artery. Good backflow was present. There were no EEG changes. An expeditious endarterectomy was then done, with a good feathered end being obtained in the internal carotid artery. All debris was removed or f lushed out of the artery. The arteriotomy was closed with a Dacron patch with a running Hemashield 7 suture. Flow was first established through the external carotid and then back through the internal carotid. All vessels were flushed prior to completion of the suture line, which then appeared to be quite hemostatic. Heparin was reversed with protamine. The wound was sprayed with some topical thro mbin and closed in layers using 3-0 Vicryl for the cervical fascia, 3-0 Vicryl for the platysma and s ubcutaneous tissue, and a 4-0 Monocryl subcuticular stitch for the skin. The posterior flap was infi ltrated with 0.5% Marcaine. There were no complications. She awoke moving all extremities equally, and was taken to recovery room in satisfactory condition. There were no complications. /[id number]/MODL
[2018-07-31] MEDS: OXYCODONE/APAP 5/325 TAB PO PRN ×3 (13:34→21:22)
[2018-07-31] MEDS ORDERED: BISACODYL 10 MG SUPP PR PRN (14:05)
[2018-07-31] MEDS ORDERED: POLYETHYLENE GLYCOL 3350 17 GM PKT PO PRN (14:05)
[2018-07-31] MEDS ORDERED: MAGNESIUM HYDROXIDE 30 ML UDCUP PO PRN (14:05)
[2018-07-31] MEDS ORDERED: LACTULOSE 20 GM/30 ML UDCUP PO PRN (14:05)
[2018-07-31] MEDS: GABAPENTIN 300 MG CAP PO SCH ×2 (15:06→21:21)
--- NOTE | 2018-07-31 15:55 | PDMN ---
Medical Necessity Medical necessity: [facility] IP only surgery; cpt 32718 Carotid Endarterectomy
[2018-07-31] MEDS: MONTELUKAST SODIUM 10 MG TAB PO SCH (17:12)
[2018-07-31] MEDS: metFORMIN HCL 500 MG TAB PO SCH (17:12)
[2018-07-31] MEDS: VERAPAMIL ER 240 MG TAB PO SCH (21:20)
[2018-07-31] MEDS: LISINOPRIL 2.5 MG TAB PO SCH (21:20)
[2018-07-31] MEDS: DONEPEZIL HCL 5 MG TAB PO SCH (21:20)
[2018-07-31] MEDS: DIVALPROEX ER 500 MG TAB PO SCH (21:21)
[2018-07-31] MEDS: INSULIN GLARGINE 100 UNITS/ML UNIT SC SCH (21:21)
[2018-07-31] MEDS: SENNOSIDES/DOCUSATE SODIUM TAB PO SCH (21:21)
[2018-07-31] MEDS: Mirabegron [Myrbetriq] 50 MG PO SCH (21:23)
[2018-08-01] MEDS: OXYCODONE/APAP 5/325 TAB PO PRN ×2 (01:29→05:38)
[2018-08-01] MEDS: LORazepam 1 MG TAB PO PRN (04:51)
[2018-08-01] MEDS: LEVOTHYROXINE 200 MCG TAB PO SCH (05:03)
--- NOTE | 2018-08-01 09:56 | SOAPPROG ---
SOAP Progress Note Assessment/Plan: Assessment/Plan: 73 Y F s/p R CEA c patch closure, POD#1. C/o cough and dry throat. Mist mask PRN. Continue pain control. Neuro intact. Dressing intact. DM. Checking BS and on ADA diet. Continue routine home meds. Dispo: medsurg. Likely home tomorrow. S: cough, moving all extremities ok, no weakness, doesn't feel ready to go home yet, tolerating diet. O: alert, nad dressing intact, no major swelling. minor old shadowing on dressing. pupils equal and round tongue midline ctab rrr abd soft ext wwp neuro grossly intact. 08/01/18 09:52 Objective: Vital Signs Temp Pulse Resp BP Pulse Ox 37.2 C 94 20 108/59 L 92 07/31/18 20:00 08/01/18 06:00 08/01/18 06:00 08/01/18 06:00 08/01/18 06:00 Laboratory Results 08/01/18 05:00 08/01/18 05:00 07/31/18 08/01/18 08/02/18 05:59 05:59 05:59 Intake Total 4205 Output Total 980 Balance 3225 ICD10 Worksheet Patient Problems: Problems Problem Status Onset CVA (cerebral vascular accident) Acute Change in vision Acute Chest pain Acute Diplopia Acute Extraocular muscle palsy of left eye Acute Headache Acute Left tibial fracture Acute Pain of left anterior lower extremity Acute TIA (transient ischemic attack) Acute UTI (lower urinary tract infection) Acute
[2018-08-01] MEDS: DIVALPROEX ER 500 MG TAB PO SCH ×2 (10:26→21:23)
[2018-08-01] MEDS: metFORMIN HCL 500 MG TAB PO SCH ×2 (10:26→17:15)
[2018-08-01] MEDS: ATORVASTATIN CALCIUM 40 MG TAB PO SCH (10:26)
[2018-08-01] MEDS: ASPIRIN EC 81 MG TAB PO SCH (10:27)
[2018-08-01] MEDS: GABAPENTIN 300 MG CAP PO SCH ×3 (10:27→21:23)
[2018-08-01] MEDS: SENNOSIDES/DOCUSATE SODIUM TAB PO SCH ×2 (10:27→21:23)
[2018-08-01] MEDS: CITALOPRAM 20 MG TAB PO SCH (10:28)
[2018-08-01] MEDS ORDERED: ACETAMINOPHEN 325 MG TAB PO PRN (11:49)
[2018-08-01] MEDS: oxyCODONE IR 5 MG TAB PO PRN ×3 (12:21→21:24)
--- NOTE | 2018-08-01 15:56 | ASMTCMCOM ---
CM Note CM Note Notes: Pt is a 73 yo F presents with carotid stenosis. Has history of diabetes, bipolar disorder and recent stroke. Discharge needs TBD. CM to follow. Plan: TBD Date Signed: 08/01/2018 03:54 PM Electronically Signed By:VAIBHAV Orellana
[2018-08-01] MEDS: SUMAtriptan 50 MG TAB PO PRN (16:01)
[2018-08-01] MEDS: CEPACOL LOZENGE PO PRN (16:02)
[2018-08-01] MEDS: guaiFENesin 600 MG TAB.ER PO PRN (16:02)
[2018-08-01] MEDS: MONTELUKAST SODIUM 10 MG TAB PO SCH (17:15)
[2018-08-01] MEDS: LISINOPRIL 2.5 MG TAB PO SCH (21:23)
[2018-08-01] MEDS: Mirabegron [Myrbetriq] 50 MG PO SCH (21:23)
[2018-08-01] MEDS: VERAPAMIL ER 240 MG TAB PO SCH (21:23)
[2018-08-01] MEDS: DONEPEZIL HCL 5 MG TAB PO SCH (21:24)
[2018-08-01] MEDS: INSULIN GLARGINE 100 UNITS/ML UNIT SC SCH (21:24)
[2018-08-02] MEDS: oxyCODONE IR 5 MG TAB PO PRN ×3 (02:10→17:41)
[2018-08-02] MEDS: CEPACOL LOZENGE PO PRN ×2 (02:11→08:45)
[2018-08-02] MEDS: LEVOTHYROXINE 200 MCG TAB PO SCH (06:31)
[2018-08-02] MEDS: ENOXAPARIN 40 MG/0.4 ML SYR SC SCH (08:42)
[2018-08-02] MEDS: ASPIRIN EC 81 MG TAB PO SCH (08:43)
[2018-08-02] MEDS: CITALOPRAM 20 MG TAB PO SCH (08:43)
[2018-08-02] MEDS: SENNOSIDES/DOCUSATE SODIUM TAB PO SCH ×2 (08:43→21:24)
[2018-08-02] MEDS: DIVALPROEX ER 500 MG TAB PO SCH ×2 (08:44→21:23)
[2018-08-02] MEDS: metFORMIN HCL 500 MG TAB PO SCH ×2 (08:44→17:41)
[2018-08-02] MEDS: ATORVASTATIN CALCIUM 40 MG TAB PO SCH (08:44)
[2018-08-02] MEDS: GABAPENTIN 300 MG CAP PO SCH ×3 (08:45→21:24)
[2018-08-02] MEDS: SUMAtriptan 50 MG TAB PO PRN (09:13)
[2018-08-02] MEDS: BENZONATATE 100 MG CAP PO SCH ×3 (09:38→21:24)
[2018-08-02] MEDS: MONTELUKAST SODIUM 10 MG TAB PO SCH (17:41)
[2018-08-02] MEDS: DONEPEZIL HCL 5 MG TAB PO SCH (21:23)
[2018-08-02] MEDS: VERAPAMIL ER 240 MG TAB PO SCH (21:23)
[2018-08-02] MEDS: INSULIN GLARGINE 100 UNITS/ML UNIT SC SCH (21:24)
[2018-08-02] MEDS: LISINOPRIL 2.5 MG TAB PO SCH (21:24)
[2018-08-02] MEDS: Mirabegron [Myrbetriq] 50 MG PO SCH (21:30)
[2018-08-02] MEDS: LORazepam 1 MG TAB PO PRN (23:45)
[2018-08-03] MEDS: SUMAtriptan 50 MG TAB PO PRN (00:01)
[2018-08-03] MEDS: oxyCODONE IR 5 MG TAB PO PRN ×2 (00:44→06:02)
[2018-08-03] MEDS: LEVOTHYROXINE 200 MCG TAB PO SCH (06:02)
[2018-08-03 07:35] VITALS: BP 143/75
[2018-08-03] MEDS: guaiFENesin 600 MG TAB.ER PO PRN (08:50)
[2018-08-03] MEDS: ATORVASTATIN CALCIUM 40 MG TAB PO SCH (08:50)
[2018-08-03] MEDS: SENNOSIDES/DOCUSATE SODIUM TAB PO SCH (08:50)
[2018-08-03] MEDS: ASPIRIN EC 81 MG TAB PO SCH (08:51)
[2018-08-03] MEDS: CITALOPRAM 20 MG TAB PO SCH (08:51)
[2018-08-03] MEDS: BENZONATATE 100 MG CAP PO SCH (08:51)
[2018-08-03] MEDS: GABAPENTIN 300 MG CAP PO SCH (08:51)
[2018-08-03] MEDS: DIVALPROEX ER 500 MG TAB PO SCH (08:51)
[2018-08-03] MEDS: metFORMIN HCL 500 MG TAB PO SCH (08:51)
[2018-08-03] MEDS: ENOXAPARIN 40 MG/0.4 ML SYR SC SCH (09:02)
--- NOTE | 2018-08-03 09:44 | PDHOMEO2F ---
Home Oxygen Face to Face Home Orders: I certify that a physician or a nurse practitioner or physician's administrative services assistant has had a sdql-sq-dlmb encounter with this patient on the date of this order due to the diagnosis listed, which relates to the primary reason the patient requires home oxygen. Alternative treatments have been tried, or considered, and deemed ineffective. It is anticipated that supplemental oxygen will result in improvement with treatment. Home oxygen qualifying diagnosis: Hypoxia SpO2 on room air (%): 84% Frequency of home oxygen needed: continuous Home oxygen liters per minute: 2 Home oxygen delivery device: nasal cannula Concentrator: Yes E-tanks for mobility and back up: Yes If ordering portable O2, is the patient mobile in the home?: Yes I certify that, based on these findings, the home oxygen is medically necessary for this patient for the following length of time. Length of time home oxygen needed: 1 month
--- NOTE | 2018-08-03 11:29 | ASMTDCNOTE ---
Case Management Discharge Discharge Order Complete? Answers: Yes Patient to Obtain Answers: via Family Medications Transportation Arranged Answers: Family/Friends Discharge Comments Notes: CM met with pt, She is being discharged today independently and has family to transport, help obtain meds, and assist with follow-up needs. Pt said she does not need help setting up appts, including help with Mental Health Appt. She reports no concerns at this time and is happy to be getting out of the hospital. No other CM needs identified. Date Signed: 08/03/2018 11:28 AM Electronically Signed By:VAIBHAV Orellana
--- NOTE | 2018-08-03 12:14 | PDHOMEO2F ---
Home Oxygen Face to Face Home Orders: I certify that a physician or a nurse practitioner or physician's assistant department manager has had a aolf-eh-nxpl encounter with this patient on the date of this order due to the diagnosis listed, which relates to the primary reason the patient requires home oxygen. Alternative treatments have been tried, or considered, and deemed ineffective. It is anticipated that supplemental oxygen will result in improvement with treatment. Home oxygen qualifying diagnosis: COPD SpO2 on room air (%): 84 Frequency of home oxygen needed: continuous Home oxygen liters per minute: 2 Home oxygen delivery device: nasal cannula Concentrator: Yes E-tanks for mobility and back up: Yes If ordering portable O2, is the patient mobile in the home?: Yes I certify that, based on these findings, the home oxygen is medically necessary for this patient for the following length of time. Length of time home oxygen needed: 99 years
--- NOTE | 2018-08-06 14:06 | GDS ---
[f rep st] DISCHARGE SUMMARY DISCHARGE DIAGNOSES: 1. Critical right carotid stenosis with history of cerebral vascular accident. 2. Diabetes. 3. Cough. OTHER DIAGNOSES: Include asthma, bipolar disorder, chronic pain, gastroesophageal reflux disease, hi gh blood pressure, hypothyroidism, idiopathic normal-pressure hydrocephalus status post shunt, migrai ne headaches. PROCEDURES: Right carotid endarterectomy with EEG monitoring and patch closure. FINDINGS: The patient was found to have a tight calcified stenosis at the origin of the internal car otid artery. She had no EEG findings during the procedure and she woke up neurologically intact. Sh e had very good backflow from the internal carotid stump. HOSPITAL COURSE: The patient is a 73-year-old female with multiple comorbidities who suffered a stro ke characterized by left eye lateral deviation with diplopia. She underwent a right carotid endarter ectomy for critical carotid stenosis. The procedure was uncomplicated and she tolerated it well. Sh ricky had no EEG changes during the procedure and she awoke neurologically intact. The patient was cared for in the ICU on postoperative day 0 per routine. She was kept on a diabetic diet and her blood sugars were checked and insulin administered accordingly. She complained of a cou gh and dry throat and she was provided with a mist mask. Ultimately, a chest x-ray was done and show ed no acute abnormality. She remained neurologically intact, but still required 2 L of oxygen via na kai cannula. DISCHARGE INSTRUCTIONS: The patient was discharged to home in stable condition with plans for outpat ient followup. Limitations were discussed. Home oxygen via nasal cannula was arranged. /[id number]/[id number]
== END 2018-08-03 14:19 | disposition home or self-care (01) | DRG 39 ==
LOC: F2N 07:49 → F2W 08-01 12:05
PROVIDERS: ADMIT Surgery; ATTEND Surgery
DX: I65.21 Occlusion and stenosis of right carotid artery (principal); E11.9 Type 2 diabetes mellitus without complications; J45.909 Unspecified asthma, uncomplicated; F31.9 Bipolar disorder, unspecified; G89.29 Other chronic pain; K21.9 Gastro-esophageal reflux disease without esophagitis; I10 Essential (primary) hypertension; E03.9 Hypothyroidism, unspecified; G43.909 Migraine, unspecified, not intractable, without status migrainosus; G47.33 Obstructive sleep apnea (adult) (pediatric); Z86.73 Personal history of transient ischemic attack (TIA), and cerebral infarction without residual deficits
CPT/HCPCS: 92526-GN; C1768; J0690; J1170; J1644; J1650; J1815; J2001; J2405; J2704; J2720; J3010